=== PATIENT | female | born 1940 | race African-American/Black ===

== ENCOUNTER → 2018-09-15 | Outpatient (CLI) | payer MEDICARE ==
--- NOTE | 2018-09-16 11:15 | MM ---
Reason for exam: screening (asymptomatic). Last mammogram was performed 4 years ago. History: Patient is postmenopausal. Family history of breast cancer in aunt. Physical Findings: A clinical breast exam by your physician is recommended on an annual basis and results should be correlated with mammographic findings. MG 3D Screening Mammo W/Cad Bilateral CC and MLO view(s) were taken. Prior study comparison: September 14, 2014, bilateral MG screening mammo w CAD. April 14, 2013, bilateral digital screening mammo w/CAD. There are scattered fibroglandular densities. No significant changes when compared with prior studies. ASSESSMENT: Negative, BI-RAD 1 RECOMMENDATION: Routine screening mammogram of both breasts in 1 year.
== END ==
LOC: RADMAMWWP 13:22
PROVIDERS: ATTEND Internal Medicine
DX: Z12.31 Encounter for screening mammogram for malignant neoplasm of breast (principal)
CPT/HCPCS: 77063; 77067

== ENCOUNTER → 2023-03-01 | Outpatient (CLI) | payer MEDICARE ==
[2023-03-01 17:00] LABS: Albumin 3.5 d/dL (3.8-4.9); Blood Urea Nitrogen 28.2 mg/dL (9.0-27.0); Calcium 9.6 mg/dL (8.7-10.3); Carbon Dioxide 26.1 mmol/L (21.6-31.8); Chloride 105 mmol/L (96-109); Glucose 90 mg/dL (70-110); Potassium 4.7 mmol/L (3.5-5.5); Sodium 140 mmol/L (135-145)
== END | disposition home or self-care (01) ==
LOC: LABWHC1 10:28
PROVIDERS: ATTEND Student in an Organized Health Care Education/Training Program
DX: N18.9 Chronic kidney disease, unspecified (principal); I50.9 Heart failure, unspecified
CPT/HCPCS: 36415; 80048; 82040; 82784

== ENCOUNTER → 2023-05-03 | Outpatient (CLI) | payer MEDICARE ==
[2023-05-03 12:18] LABS: African American GFR (CKD) 60 (>60 ml/min/1.73 sqM); Anion Gap 10 mmol/L; Blood Urea Nitrogen 52 mg/dL (7-17); Calcium 9.2 mg/dL (8.4-10.2); Carbon Dioxide 25 mmol/L (22-30); Chloride 103 mmol/L (98-107); Glucose 88 mg/dL (74-99); Non-African American GFR(CKD) 52 (>60 ml/min/1.73 sqM); Potassium 4.3 mmol/L (3.5-5.1); Sodium 138 mmol/L (137-145)
[2023-05-03 12:27] LABS: NT-Pro-B-Type Natriuretic Pept 8230 pg/mL
== END | disposition home or self-care (01) ==
LOC: LABWHC1 11:14
PROVIDERS: ATTEND Student in an Organized Health Care Education/Training Program
DX: I50.9 Heart failure, unspecified (principal); N18.9 Chronic kidney disease, unspecified; I42.0 Dilated cardiomyopathy
CPT/HCPCS: 36415; 80048; 83880; 83883; 86334; 86335

== ENCOUNTER → 2023-12-02 | Outpatient (CLI) | payer MEDICARE ==
[2023-12-02 15:23] LABS: HCT 39.9 % (37.2-46.3); HGB 12.8 g/dL (12.0-15.0); MCH 28.5 pg (27.0-32.0); MCHC 32.1 g/dL (32.0-37.0); MCV 88.9 FL (80.0-97.0); Mean Platelet Volume 9.6 FL (9.5-12.2); NRBC Per 100 WBC 0 X 10*3/uL (0.00-0.01); Platelet Count 238 X 10*3/uL (140-440); RBC 4.49 X 10*6/uL (4.10-5.20); WBC 6.12 X 10*3/uL (4.50-10.00)
[2023-12-02 15:28] LABS: NT-Pro-B-Type Natriuretic Pept 13683 pg/mL (0-450)
[2023-12-02 16:18] LABS: ALT 13 U/L (8-44); AST 26 U/L (13-35); Albumin 3.9 g/dL (3.8-4.9); Albumin/Globulin Ratio 0.95 Ratio (1.60-3.17); Alkaline Phosphatase 73 U/L (41-126); BUN/Creat Ratio 26.15 Ratio (12.00-20.00); Calcium 9.6 mg/dL (8.7-10.3); Carbon Dioxide 22.9 mmol/L (21.6-31.8); Chloride 102 mmol/L (96-109); Globulin 4.1 g/dL (1.6-3.3); Glucose 111 mg/dL (70-110); Potassium 3.4 mmol/L (3.5-5.5); Sodium 140 mmol/L (135-145); Total Bilirubin 1.3 mg/dL (0.3-1.2)
== END | disposition home or self-care (01) ==
LOC: LABWHC1 11:22
PROVIDERS: ATTEND Student in an Organized Health Care Education/Training Program
DX: E11.22 Type 2 diabetes mellitus with diabetic chronic kidney disease (principal); N18.9 Chronic kidney disease, unspecified; I50.9 Heart failure, unspecified; E78.5 Hyperlipidemia, unspecified; D63.1 Anemia in chronic kidney disease
CPT/HCPCS: 36415; 80053; 83036; 83880; 85027

== ENCOUNTER 2024-04-23 11:45 | Inpatient (IN) | payer MEDICARE ==
--- NOTE | 2024-04-23 12:08 | ED ---
General Adult HPI - General Chief complaint: Syncope Stated complaint: Syncope Time Seen by Provider: 04/23/24 11:55 Source: patient, family, RN notes reviewed Mode of arrival: wheelchair Limitations: no limitations - History of Present Illness Initial comments: Patient is an 83-year-old female present to the emergency department with concern with syncopal episode. Episode occurred prior to arrival. Patient was just picked up and sitting in the car. Patient became unresponsive for around 4 seconds. Patient does not recall the episode. Patient states she does feel a little bit lightheaded at this time. Patient also has some palpitations. No chest pain. No dyspnea. No abdominal or back pain. Patient does not feel weak or confused. - Related Data Home Medications Medication Instructions Recorded Confirmed lisinopriL [Prinivil] 20 mg PO DAILY 03/08/15 04/23/24 Cholecalciferol (Vitamin D3) 50 mcg PO DAILY 04/23/24 04/23/24 [Vitamin D3 (50 Mcg = 2000 Iu)] Cyanocobalamin (Vitamin B-12) 1,000 mcg PO DAILY 04/23/24 04/23/24 [Vitamin B-12] Furosemide [Lasix] 40 mg PO DAILY 04/23/24 04/23/24 Metoprolol Tartrate [Lopressor] 50 mg PO BID 04/23/24 04/23/24 Simvastatin [Zocor] 40 mg PO HS 04/23/24 04/23/24 Spironolactone [Aldactone] 25 mg PO DAILY 04/23/24 04/23/24 Previous Rx's Medication Instructions Recorded Aspirin EC [Ecotrin] 81 mg PO DAILY #30 tablet. 03/10/15 Allergies Allergy/AdvReac Type Severity Reaction Status Date / Time No Known Allergies Allergy Verified 04/23/24 12:23 Review of Systems ROS Statement: Those systems with pertinent positive or pertinent negative responses have been documented in the HPI. ROS Other: All systems not noted in ROS Statement are negative. Constitutional: Denies: fever Eyes: Denies: eye pain ENT: Denies: ear pain Respiratory: Denies: cough, dyspnea Cardiovascular: Reports: palpitations. Denies: chest pain Endocrine: Denies: fatigue Gastrointestinal: Denies: abdominal pain Musculoskeletal: Denies: back pain Neurological: Denies: headache, weakness, confusion Past Medical History Past Medical History: Heart Failure, Hyperlipidemia, Hypertension History of Any Multi-Drug Resistant Organisms: None Reported Past Surgical History: Hysterectomy, Tonsillectomy Past Anesthesia/Blood Transfusion Reactions: No Reported Reaction Past Psychological History: No Psychological Hx Reported Past Alcohol Use History: None Reported Past Drug Use History: None Reported - Past Family History Father Family Medical History: Pneumonia General Exam Limitations: no limitations General appearance: alert, in no apparent distress Head exam: Present: atraumatic, normocephalic Eye exam: Present: normal appearance, PERRL, EOMI ENT exam: Present: normal oropharynx Neck exam: Present: normal inspection. Absent: tenderness, meningismus Respiratory exam: Present: normal lung sounds bilaterally Cardiovascular Exam: Present: regular rate, normal rhythm GI/Abdominal exam: Present: soft. Absent: tenderness Extremities exam: Present: pedal edema. Absent: calf tenderness Back exam: Present: normal inspection Neurological exam: Present: alert, CN II-XII intact. Absent: motor sensory deficit Psychiatric exam: Present: normal affect, normal mood Skin exam: Present: normal color Course Vital Signs 04/23/24 04/23/24 04/23/24 11:48 12:08 12:26 Temperature 97.5 F L Pulse Rate 70 68 66 Respiratory 20 16 Rate Blood Pressure 146/77 140/88 O2 Sat by Pulse 86 L 96 99 Oximetry EKG Findings - EKG Results: EKG: interpreted by ERMD (Right axis. Right bundle branch block. Inferior Q waves. Q wave in V6. Nonspecific ST-T), sinus rhythm Medical Decision Making - Medical Decision Making Was pt. sent in by a medical professional or institution (, PA, STEERSMAN, urgent care, hospital, or usp...) When possible be specific @ -No Did you speak to anyone other than the patient for history (EMS, parent, family, police, friend...)? What history was obtained from this source @ -[id number] helps provide history as she did witness the syncopal episode Did you review nursing and triage notes (agree or disagree)? Why? @ -I reviewed and agree with nursing and triage notes Were old charts reviewed (outside hosp., previous admission, EMS record, old EKG, old radiological studies, urgent care reports/EKG's, usp records)? Report findings @ -No old charts were reviewed Differential Diagnosis (chest pain, altered mental status, abdominal pain women, abdominal pain men, vaginal bleeding, weakness, fever, dyspnea, syncope, headache, dizziness, GI bleed, back pain, seizure, CVA, palpatations, mental health, musculoskeletal)? @ -Differential Syncope: Valvular disease, hypertrophic cardiomyopathy, pulmonary embolism, tamponade, tachycardia, bradycardia, DE, hypovolemia, hemorrhage, dissection, anemia, intracranial hemorrhage, seizure, hypoglycemia, carbon monoxide poisoning, this is not meant to be an all-inclusive list. EKG interpreted by me (3pts min.). @ -As above X-rays interpreted by me (1pt min.). @ -Chest x-ray shows cardiomegaly and some increased interstitial markings, possible fluid overload CT interpreted by me (1pt min.). @ -None done U/S interpreted by me (1pt. min.). @ -None done What testing was considered but not performed or refused? (CT, X-rays, U/S, labs)? Why? @ -proBNP will be added What meds were considered but not given or refused? Why? @ -None Did you discuss the management of the patient with other professionals (professionals i.e. , PA, STEERSMAN, lab, RT, psych nurse, child welfare social worker, ammonia nitrate operator, teacher, chief supply chain officer, case operator)? Give summary @ -[facility] to admit covering for Dr. Gallardo Was smoking cessation discussed for >3mins.? @ -No Was critical care preformed (if so, how long)? @ -No Were there social determinants of health that impacted care today? How? (Homelessness, low income, unemployed, alcoholism, drug addiction, transportation, low edu. Level, literacy, decrease access to med. care, nursing home, rehab)? @ -No Was there de-escalation of care discussed even if they declined (Discuss DNR or withdrawal of care, Hospice)? DNR status @ -No What co-morbidities impacted this encounter? (DM, HTN, Smoking, COPD, CAD, Cancer, CVA, ARF, Chemo, Hep., AIDS, mental health diagnosis, sleep apnea, morbid obesity)? @ -None Was patient admitted / discharged? Hospital course, mention meds given and route, prescriptions, significant lab abnormalities, going to OR and other pertinent info. @ -Patient presents with syncopal episode. Troponin is somewhat elevated. There is also concern for CHF. Patient will be admitted with cardiac consult. Undiagnosed new problem with uncertain prognosis? @ -No Drug Therapy requiring intensive monitoring for toxicity (Heparin, Nitro, Insulin, Cardizem)? @ -No Were any procedures done? @ -No Diagnosis/symptom? @ -Syncope, CHF Acute, or Chronic, or Acute on Chronic? @ -, Acute Uncomplicated (without systemic symptoms) or Complicated (systemic symptoms)? @ -Default Side effects of treatment? @ -No Exacerbation, Progression, or Severe Exacerbation? @ -No Poses a threat to life or bodily function? How? (Chest pain, USA, DE, pneumonia, PE, COPD, DKA, ARF, appy, cholecystitis, CVA, Diverticulitis, Homicidal, Suicidal, threat to staff... and all critical care pts) @ -Threat to cardiac function - Lab Data Result diagrams: 04/23/24 12:10 04/23/24 12:10 Lab Results 04/23/24 04/23/24 04/23/24 Range/Units 12:10 12:10 12:10 WBC 4.6 (3.8-10.6) k/uL RBC 4.44 (3.80-5.40) m/uL Hgb 12.7 (11.4-16.0) gm/dL Hct 40.6 (34.0-46.0) % MCV 91.4 (80.0-100.0) fL MCH 28.5 (25.0-35.0) pg MCHC 31.2 (31.0-37.0) g/dL RDW 13.7 (11.5-15.5) % Plt Count 255 (150-450) k/uL MPV 6.9 Neutrophils % 43 % Lymphocytes % 36 % Monocytes % 7 % Eosinophils % 10 % Basophils % 1 % Neutrophils # 2.0 (1.3-7.7) k/uL Lymphocytes # 1.6 (1.0-4.8) k/uL Monocytes # 0.3 (0-1.0) k/uL Eosinophils # 0.4 (0-0.7) k/uL Basophils # 0.0 (0-0.2) k/uL Hypochromasia Slight PT 10.8 (10.0-12.5) sec INR 1.0 (<1.2) APTT 21.7 L (22.0-30.0) sec Sodium 137 (137-145) mmol/L Potassium 4.4 (3.5-5.1) mmol/L Chloride 104 (98-107) mmol/L Carbon Dioxide 24 (22-30) mmol/L Anion Gap 9 mmol/L BUN 49 H (7-17) mg/dL Creatinine 1.41 H (0.52-1.04) mg/dL Est GFR (CKD-EPI)AfAm 39 (>60 ml/min/1.73 sqM) Est GFR (CKD-EPI)NonAf 34 (>60 ml/min/1.73 sqM) Glucose 105 H (74-99) mg/dL POC Glucose (mg/dL) (70-110) mg/dL POC Glu Qa Automation Architect ID Calcium 9.6 (8.4-10.2) mg/dL Magnesium 2.4 H (1.6-2.3) mg/dL Total Bilirubin 0.6 (0.2-1.3) mg/dL AST 44 H (14-36) U/L ALT 27 (4-34) U/L Alkaline Phosphatase 75 (38-126) U/L Troponin I (0.000-0.034) ng/mL Total Protein 7.9 (6.3-8.2) g/dL Albumin 4.2 (3.5-5.0) g/dL 04/23/24 04/23/24 Range/Units 12:10 12:10 WBC (3.8-10.6) k/uL RBC (3.80-5.40) m/uL Hgb (11.4-16.0) gm/dL Hct (34.0-46.0) % MCV (80.0-100.0) fL MCH (25.0-35.0) pg MCHC (31.0-37.0) g/dL RDW (11.5-15.5) % Plt Count (150-450) k/uL MPV Neutrophils % % Lymphocytes % % Monocytes % % Eosinophils % % Basophils % % Neutrophils # (1.3-7.7) k/uL Lymphocytes # (1.0-4.8) k/uL Monocytes # (0-1.0) k/uL Eosinophils # (0-0.7) k/uL Basophils # (0-0.2) k/uL Hypochromasia PT (10.0-12.5) sec INR (<1.2) APTT (22.0-30.0) sec Sodium (137-145) mmol/L Potassium (3.5-5.1) mmol/L Chloride (98-107) mmol/L Carbon Dioxide (22-30) mmol/L Anion Gap mmol/L BUN (7-17) mg/dL Creatinine (0.52-1.04) mg/dL Est GFR (CKD-EPI)AfAm (>60 ml/min/1.73 sqM) Est GFR (CKD-EPI)NonAf (>60 ml/min/1.73 sqM) Glucose (74-99) mg/dL POC Glucose (mg/dL) 99 (70-110) mg/dL POC Glu Qa Automation Architect ID Branden Ron Calcium (8.4-10.2) mg/dL Magnesium (1.6-2.3) mg/dL Total Bilirubin (0.2-1.3) mg/dL AST (14-36) U/L ALT (4-34) U/L Alkaline Phosphatase (38-126) U/L Troponin I 0.097 H* (0.000-0.034) ng/mL Total Protein (6.3-8.2) g/dL Albumin (3.5-5.0) g/dL Disposition Clinical Impression: Syncope, CHF (congestive heart failure) Disposition: ADMITTED IP TO THIS HOSP Is patient prescribed a controlled substance at d/c from ED?: No Referrals: Anya Newsome MD [Primary Care Provider] - 1-2 days Time of Disposition: 14:10
[2024-04-23 12:12] LABS: Glucose,Whole Blood 99 mg/dL (70-110)
[2024-04-23 12:16] LABS: Basophils % (A) 1 %; Eosinophils # (A) 0.4 k/uL (0-0.7); Eosinophils % (A) 10 %; HCT 40.6 % (34.0-46.0); HGB 12.7 gm/dL (11.4-16.0); Hypochromasia Slight; Lymphocytes # (A) 1.6 k/uL (1.0-4.8); Lymphocytes % (A) 36 %; MCH 28.5 pg (25.0-35.0); MCHC 31.2 g/dL (31.0-37.0); MCV 91.4 fL (80.0-100.0); Mean Platelet Volume 6.9; Monocytes # (A) 0.3 k/uL (0-1.0); Monocytes % (A) 7 %; Neutrophils % (A) 43 %; Platelet Count 255 k/uL (150-450); RBC 4.44 m/uL (3.80-5.40); RDW 13.7 % (11.5-15.5); WBC 4.6 k/uL (3.8-10.6)
[2024-04-23 12:28] LABS: ALT 27 U/L (4-34); AST 44 U/L (14-36); African American GFR (CKD) 39 (>60 ml/min/1.73 sqM); Albumin 4.2 g/dL (3.5-5.0); Alkaline Phosphatase 75 U/L (38-126); Anion Gap 9 mmol/L; Blood Urea Nitrogen 49 mg/dL (7-17); Calcium 9.6 mg/dL (8.4-10.2); Carbon Dioxide 24 mmol/L (22-30); Chloride 104 mmol/L (98-107); Glucose 105 mg/dL (74-99); Magnesium 2.4 mg/dL (1.6-2.3); Non-African American GFR(CKD) 34 (>60 ml/min/1.73 sqM); Potassium 4.4 mmol/L (3.5-5.1); Sodium 137 mmol/L (137-145); Total Bilirubin 0.6 mg/dL (0.2-1.3); Total Protein 7.9 g/dL (6.3-8.2)
[2024-04-23 12:31] LABS: Prothrombin Time 10.8 sec (10.0-12.5)
[2024-04-23 12:33] LABS: Partial Thromboplastin Time 21.7 sec (22.0-30.0)
--- NOTE | 2024-04-23 12:51 | XR ---
EXAMINATION TYPE: XR chest 2V DATE OF EXAM: 04/23/2024 12:44 PM COMPARISON: Chest radiographs from 03/08/2015 CLINICAL INDICATION: Female, 83 years old with history of syncope; TECHNIQUE: XR chest 2V Frontal and lateral views of the chest. FINDINGS: Lungs/Pleura: There is no evidence of pleural effusion, focal consolidation, or pneumothorax. Pulmonary vascularity: Pulmonary vascular congestion. Heart/mediastinum: Cardiomediastinal silhouette is enlarged and stable. Musculoskeletal: No acute osseous pathology. IMPRESSION: Cardiomegaly and mild pulmonary vascular congestion. Correlate with BNP for congestive heart failure. [facility], , 04/23/2024 12:48 PM
--- NOTE | 2024-04-23 12:55 | CT ---
EXAMINATION TYPE: CT brain wo con DATE OF EXAM: 04/23/2024 12:43 PM COMPARISON: 03/08/2015. CLINICAL INDICATION: Female, 83 years old with history of syncope, syncope TECHNIQUE: Brain: Axial CT images of the brain were obtained with coronal and sagittal reformats created and rev iewed. Contrast used: None. Oral contrast used: None. CT DLP: 1094.4 mGycm, Automated exposure control for dose reduction was used. FINDINGS: Brain: Extra-axial spaces: No abnormal extra-axial fluid collections. Ventricular system: Dilatation in proportion to cerebral atrophy. Cerebral parenchyma: Cerebral atrophy. No acute intraparenchymal hemorrhage or mass effect. The puente -white junction is well differentiated. Scattered hypoattenuating areas are seen within the white mat ter. Cerebellum: Unremarkable. Mass effect: No evidence of midline shift. Intracranial vasculature: Atherosclerotic calcifications of the intracranial vessels. Soft tissues: Normal. Calvarium/osseous structures: No depressed skull fracture. Paranasal sinuses and mastoid air cells: Mild scattered paranasal sinus disease. Visualized orbits: Orbital contents are intact. IMPRESSION: 1. No acute intracranial process. 2. Nonspecific white matter changes, likely secondary to chronic small vessel ischemic disease. [facility], , 04/23/2024 12:52 PM
[2024-04-23] MEDS: ASPIRIN 325 MG TAB PO STA (14:58)
[2024-04-23] MEDS: FUROSEMIDE 10 MG/ML 4 ML VIAL IV SCH (14:58)
--- NOTE | 2024-04-23 20:17 | P.HPIM ---
History of Present Illness This is a pleasant 83 years old -[place] lady. Presents because of syncope As per family at bedside patient was with them in the car, she was sitting when she passed out for about 4 to 5 minutes. She was complaining from dizziness at that time but now she denies any such symptoms. Also the patient is with memory problem and could not remember many of the details. She denies chest pain No GI/ symptom No headache dizziness weakness numbness No smoking alcohol or illicit drugs At baseline she was a walker, she walks mainly inside the house She is afebrile She has unremarkable labs: CBC, BMP, liver enzymes Creatinine elevated above baseline at 1.4, baseline 0.7-1.1, last November it was 1.3 one-time reading CT of the brain was negative Chest x-ray showing cardiomegaly with pulmonary vascular congestion, I reviewed by myself and agree proBNP is elevated 10 100 EKG: Shows sinus rhythm at 88 with right bundle branch block Review of Systems Review of systems CONSTITUTIONAL: No fever, no malaise, no fatigue. HEENT: No recent visual problems or hearing problems. Denied any sore throat. CARDIOVASCULAR: No orthopnea, PND, no palpitations, no syncope. PULMONARY: No chest wall tenderness, no hemoptysis. GASTROINTESTINAL: No diarrhea, no nausea, no vomiting, no abdominal pain. Norm oactive bowel sounds. NEUROLOGICAL: No headaches, no weakness, no numbness. HEMATOLOGICAL: Denies any bleeding or petechiae. GENITOURINARY: Denies any burning micturition, frequency, or urgency. MUSCULOSKELETAL/RHEUMATOLOGICAL: Denies any joint pain, swelling, or any muscle pain. ENDOCRINE: Denies any polyuria or polydipsia. Past Medical History Past Medical History: Heart Failure, Hyperlipidemia, Hypertension, Osteoarthritis (OA) History of Any Multi-Drug Resistant Organisms: None Reported Past Surgical History: Hysterectomy, Tonsillectomy Additional Past Surgical History / Comment(s): benign tumor removal Past Anesthesia/Blood Transfusion Reactions: No Reported Reaction Past Psychological History: No Psychological Hx Reported Smoking Status: Former smoker Past Alcohol Use History: None Reported Past Drug Use History: None Reported - Past Family History Father Family Medical History: Pneumonia Medications and Allergies Home Medications Medication Instructions Recorded Confirmed Type lisinopriL [Prinivil] 20 mg PO DAILY 03/08/15 04/23/24 History Aspirin EC [Ecotrin] 81 mg PO DAILY #30 tablet. 03/10/15 04/23/24 Rx Cholecalciferol (Vitamin D3) 50 mcg PO DAILY 04/23/24 04/23/24 History [Vitamin D3 (50 Mcg = 2000 Iu)] Cyanocobalamin (Vitamin B-12) 1,000 mcg PO DAILY 04/23/24 04/23/24 History [Vitamin B-12] Furosemide [Lasix] 40 mg PO DAILY 04/23/24 04/23/24 History Metoprolol Tartrate [Lopressor] 50 mg PO BID 04/23/24 04/23/24 History Simvastatin [Zocor] 40 mg PO HS 04/23/24 04/23/24 History Spironolactone [Aldactone] 25 mg PO DAILY 04/23/24 04/23/24 History Allergies Allergy/AdvReac Type Severity Reaction Status Date / Time No Known Allergies Allergy Verified 04/23/24 12:23 Physical Exam Vitals: Vital Signs Temp Pulse Pulse Resp BP BP Pulse Ox 04/23/24 17:55 97.9 F 69 16 133/93 98 04/23/24 17:20 67 20 131/77 97 04/23/24 14:56 65 16 117/81 94 L 04/23/24 12:26 66 16 140/88 99 04/23/24 12:08 68 96 04/23/24 11:48 97.5 F L 70 20 146/77 86 L Intake and Output 04/23/24 04/23/24 04/23/24 06:59 14:59 22:59 Intake Total 118 Balance 118 Intake: Oral 118 Other: Voiding Method Toilet Diaper Weight 53.07 kg 53.07 kg GENERAL: The patient is alert and oriented x3, not in any acute distress. Well developed, well nourished. HEENT: Pupils are round and equally reacting to light. EOMI. No scleral icterus. No conjunctival pallor. Normocephalic, atraumatic. No pharyngeal erythema. No thyromegaly. CARDIOVASCULAR: S1 and S2 present. No murmurs, rubs, or gallops. PULMONARY: Chest is clear to auscultation, no wheezing , no crackles. ABDOMEN: Soft, nontender, nondistended, normoactive bowel sounds. No palpable organomegaly. MUSCULOSKELETAL: No joint swelling or deformity. EXTREMITIES: No cyanosis, clubbing, or pedal edema. NEUROLOGICAL: Gross neurological examination did not reveal any focal deficits. SKIN: No rashes. no petechiae. Results CBC & Chem 7: 04/23/24 12:10 04/23/24 12:10 Labs: Abnormal Lab Results - Last 24 Hours (Table) 04/23/24 04/23/24 04/23/24 Range/Units 12:10 12:10 12:10 APTT 21.7 L (22.0-30.0) sec BUN 49 H (7-17) mg/dL Creatinine 1.41 H (0.52-1.04) mg/dL Glucose 105 H (74-99) mg/dL Magnesium 2.4 H (1.6-2.3) mg/dL AST 44 H (14-36) U/L Troponin I 0.097 H* (0.000-0.034) ng/mL 04/23/24 04/23/24 Range/Units 15:33 18:46 APTT (22.0-30.0) sec BUN (7-17) mg/dL Creatinine (0.52-1.04) mg/dL Glucose (74-99) mg/dL Magnesium (1.6-2.3) mg/dL AST (14-36) U/L Troponin I 0.103 H* 0.094 H* (0.000-0.034) ng/mL Thrombosis Risk Factor Assmnt - Choose All That Apply Each Risk Factor Represents 3 Points: Age 75 years or older Thrombosis Risk Factor Assessment Total Risk Factor Score: 3 Thrombosis Risk Factor Assessment Level: Moderate Risk Assessment and Plan Assessment: Syncope Acute CHF with cardiomegaly Elevated troponin most likely secondary to CHF and kidney disease Acute kidney injury on chronic kidney disease stage II-III Hypertension Plan: Continue with aspirin 81 mg Patient started on IV Lasix 40 mg twice daily in ER, monitor kidney function Cardiology team consulted Labs and medication were reviewed.. Continue same treatment. Continue with symptomatic treatment. Resume home medication. Monitor labs and vitals. DVT and GI prophylaxis. Further recommendations as per clinical course of the patient DVT prophylaxis: heparin GI Prophylaxis: Pepcid PT/OT: Pending Prognosis is guarded
[2024-04-23] MEDS: ATORVASTATIN 20 MG TAB PO SCH (20:28)
[2024-04-23] MEDS: METOPROLOL TARTRATE 50 MG TAB PO SCH (20:28)
[2024-04-24 06:25] LABS: African American GFR (CKD) 37 (>60 ml/min/1.73 sqM); Anion Gap 2 mmol/L; Blood Urea Nitrogen 49 mg/dL (7-17); Calcium 8.9 mg/dL (8.4-10.2); Carbon Dioxide 25 mmol/L (22-30); Chloride 105 mmol/L (98-107); Glucose 98 mg/dL (74-99); Non-African American GFR(CKD) 32 (>60 ml/min/1.73 sqM); Potassium 4.5 mmol/L (3.5-5.1); Sodium 132 mmol/L (137-145)
[2024-04-24 07:30] LABS: Basophils % (A) 1 %; Eosinophils # (A) 0.3 k/uL (0-0.7); Eosinophils % (A) 9 %; HCT 33.1 % (34.0-46.0); HGB 10.7 gm/dL (11.4-16.0); Lymphocytes # (A) 1.3 k/uL (1.0-4.8); Lymphocytes % (A) 32 %; MCH 28.7 pg (25.0-35.0); MCHC 32.2 g/dL (31.0-37.0); MCV 89.2 fL (80.0-100.0); Mean Platelet Volume 7.4; Monocytes # (A) 0.3 k/uL (0-1.0); Monocytes % (A) 7 %; Neutrophils # (A) 1.9 k/uL (1.3-7.7); Neutrophils % (A) 48 %; Platelet Count 206 k/uL (150-450); RBC 3.71 m/uL (3.80-5.40); RDW 14.1 % (11.5-15.5)
[2024-04-24] MEDS: SPIRONOLACTONE 25 MG TAB PO SCH (08:22)
[2024-04-24] MEDS: CYANOCOBALAMIN 500 MCG TAB PO SCH (08:22)
[2024-04-24] MEDS: CHOLECALCIFEROL 25 MCG (1000 IU) TABLET PO SCH (08:23)
[2024-04-24] MEDS: ASPIRIN 81 MG PO SCH (08:23)
[2024-04-24] MEDS: lisinopriL 20 MG TAB PO SCH (08:38)
[2024-04-24] MEDS ORDERED: ASPIRIN 325 MG TAB PO SCH (09:00)
--- NOTE | 2024-04-24 10:49 | P.CRDCN ---
History of Present Illness History of present illness: HISTORY OF PRESENT ILLNESS: This is a 83-year-old female with a past medical history significant for severe LVH, congestive heart failure, severe pulmonary hypertension, hyperlipidemia, m ild nonobstructive coronary artery disease. Patient follows in the office with Dr. Sandoval. We have been asked to see the patient in consultation for syncope and CHF. Patient examined at the bedside. Patient's family numbers at the bedside. She states that yesterday she went to her house to chart picker her and another individual for Thanksgiving. She helped walk her out to her car with her walker. She states that when she saw her initially she thought that she just did not look quite right. She got her into the car and then went to get the other person she was going to help into the car. She states that when she got back to the car she noticed that she was gurgling and unresponsive. She states that she decided to bring her to the hospital for further evaluation. She states that she was only out for a few seconds but when she came to she did appear slightly confused. The patient does state that she felt a little dizzy prior to walking out to the car. She denied having any chest pain or shortness of breath. Patient and family both report that patient had worsening lower extremity edema that is now improved today after IV Lasix. The patient's family states that she had a previous episode of syncope around [facility] of this year. However she refused to come to the hospital for evaluation at that time. It is noted that the patient's blood pressure has been on the lower side with a systolic in the mid 90s. DIAGNOSTICS: - EKG reveals sinus mechanism with right bundle branch block. - Chest xray cardiomegaly and mild pulmonary vascular congestion - Laboratory data: WBC 4.0. Hemoglobin 10.7. Platelet count 206. Sodium 132. Potassium 4.5. BUN 49. Creatinine 1.47. Troponin 0.097. 0.103. 0.094. proBNP 10,100. - Current home cardiac medications include aspirin 81 mg daily, Lasix 40 mg daily, lisinopril 20 mg daily, metoprolol tartrate 50 mg twice a day, Aldactone 25 mg daily, and simvastatin 40 mg at night - Most recent echocardiogram obtained in January 2023 performed at [facility] revealing severe LVH, severe pulmonary hypertension, RVSP greater than 60 - Cardiac catheterization history: January 2023 revealing mild nonobstructive CAD. Performed at [facility] REVIEW OF SYSTEMS: At the time of my exam: CONSTITUTIONAL: Denies fever or chills. HEENT: Denies blurred vision, vision changes, or eye pain. Denies hemoptysis CARDIOVASCULAR: Denies chest pain. Denies orthopnea. Denies PND. Denies palpitations RESPIRATORY: Denies shortness of breath. GASTROINTESTINAL: Denies abdominal pain. Denies nausea or vomiting. HEMATOLOGIC: Denies bleeding disorders. GENITOURINARY: Denies any blood in urine. SKIN: Denies pruitis. Denies rash. PHYSICAL EXAM: VITAL SIGNS: Reviewed. GENERAL: Well-developed in no acute distress. HEENT: Head is normocephalic. Pupils are equal, round. Sclerae anicteric. Mucous membranes of the mouth are moist. Neck supple. No JVD or thyromegaly LUNGS: Respirations even and unlabored. Lungs essentially clear to auscultation bilaterally, diminished. HEART: Regular rate and rhythm. S1 and S2 heard. ABDOMEN: Soft. Nondistended. Nontender. EXTREMITIES: Normal range of motion. No clubbing or cyanosis. Peripheral pulses intact. 2+ bilateral lower extremity edema NEUROLOGIC: Awake and alert. Oriented x 3. ASSESSMENT: Syncope Borderline hypotension Acute on chronic heart failure with preserved EF Mild nonobstructive coronary artery disease, per cath January 2023 Hyperlipidemia Acute kidney injury Elevated troponins, flat, likely secondary to poor renal clearance, no evidence of myocardial injury or ischemia Severe pulmonary hypertension Severe LVH PLAN: Obtain 2D echo to assess cardiac structure and function Resume home cardiac medications Hold lisinopril as patient's blood pressure is in the mid 90s this morning Obtain orthostatic blood pressures Continue telemetry monitoring to assess for any arrhythmias Continue IV Lasix for 24 hours. Anticipate transition to oral diuretics tomorrow Daily weights, accurate intake and output, and monitoring of kidney function Further recommendations pending patient course Nurse practitioner note has been reviewed by physician. Signing provider agrees with the documented findings, assessment, and plan of care documented by DETENTION SERGEANT as a scribe. Past Medical History Past Medical History: Heart Failure, Hyperlipidemia, Hypertension, Osteoarthritis (OA) History of Any Multi-Drug Resistant Organisms: None Reported Past Surgical History: Hysterectomy, Tonsillectomy Additional Past Surgical History / Comment(s): benign tumor removal Past Anesthesia/Blood Transfusion Reactions: No Reported Reaction Past Psychological History: No Psychological Hx Reported Smoking Status: Former smoker Past Alcohol Use History: None Reported Additional Past Alcohol Use History / Comment(s): smokes one pack of ciggerrettes per week Past Drug Use History: None Reported - Past Family History Father Family Medical History: Pneumonia Medications and Allergies Home Medications Medication Instructions Recorded Confirmed Type lisinopriL [Prinivil] 20 mg PO DAILY 03/08/15 04/23/24 History Aspirin EC [Ecotrin] 81 mg PO DAILY #30 tablet. 03/10/15 04/23/24 Rx Cholecalciferol (Vitamin D3) 50 mcg PO DAILY 04/23/24 04/23/24 History [Vitamin D3 (50 Mcg = 2000 Iu)] Cyanocobalamin (Vitamin B-12) 1,000 mcg PO DAILY 04/23/24 04/23/24 History [Vitamin B-12] Furosemide [Lasix] 40 mg PO DAILY 04/23/24 04/23/24 History Metoprolol Tartrate [Lopressor] 50 mg PO BID 04/23/24 04/23/24 History Simvastatin [Zocor] 40 mg PO HS 04/23/24 04/23/24 History Spironolactone [Aldactone] 25 mg PO DAILY 04/23/24 04/23/24 History Allergies Allergy/AdvReac Type Severity Reaction Status Date / Time No Known Allergies Allergy Verified 04/23/24 12:23 Physical Exam Vitals: Vital Signs Temp Pulse Pulse Resp BP BP BP 04/24/24 08:49 108/62 112/68 04/24/24 08:16 98.4 F 59 L 16 04/24/24 04:17 98.4 F 58 L 16 04/23/24 23:20 98.4 F 70 16 04/23/24 20:16 98.3 F 81 16 04/23/24 17:55 97.9 F 69 16 04/23/24 17:20 67 20 131/77 04/23/24 14:56 65 16 117/81 04/23/24 12:26 66 16 140/88 04/23/24 12:08 68 04/23/24 11:48 97.5 F L 70 20 146/77 BP BP Pulse Ox 04/24/24 08:49 111/61 04/24/24 08:16 102/59 93 L 04/24/24 04:17 97/54 93 L 04/23/24 23:20 95/59 97 04/23/24 20:16 123/82 93 L 04/23/24 17:55 133/93 98 04/23/24 17:20 97 04/23/24 14:56 94 L 04/23/24 12:26 99 04/23/24 12:08 96 04/23/24 11:48 86 L Intake and Output 04/23/24 04/24/24 04/24/24 22:59 06:59 14:59 Intake Total 118 236 Output Total 1400 Balance 118 -1400 236 Intake: Oral 118 236 Output: Urine 1400 Other: Voiding Method Toilet Toilet Diaper Diaper Weight 53.07 kg 43 kg Results 04/24/24 05:48 04/24/24 05:48 Cardiac Enzymes 04/23/24 04/23/24 04/23/24 Range/Units 12:10 12:10 15:33 AST 44 H (14-36) U/L Troponin I 0.097 H* 0.103 H* (0.000-0.034) ng/mL 04/23/24 Range/Units 18:46 AST (14-36) U/L Troponin I 0.094 H* (0.000-0.034) ng/mL Coagulation 04/23/24 Range/Units 12:10 PT 10.8 (10.0-12.5) sec APTT 21.7 L (22.0-30.0) sec CBC 04/23/24 04/24/24 Range/Units 12:10 05:48 WBC 4.6 4.0 (3.8-10.6) k/uL RBC 4.44 3.71 L (3.80-5.40) m/uL Hgb 12.7 10.7 L (11.4-16.0) gm/dL Hct 40.6 33.1 L (34.0-46.0) % Plt Count 255 206 (150-450) k/uL Comprehensive Metabolic Panel 04/23/24 04/24/24 Range/Units 12:10 05:48 Sodium 137 132 L (137-145) mmol/L Potassium 4.4 4.5 (3.5-5.1) mmol/L Chloride 104 105 (98-107) mmol/L Carbon Dioxide 24 25 (22-30) mmol/L BUN 49 H 49 H (7-17) mg/dL Creatinine 1.41 H 1.47 H (0.52-1.04) mg/dL Glucose 105 H 98 (74-99) mg/dL Calcium 9.6 8.9 (8.4-10.2) mg/dL AST 44 H (14-36) U/L ALT 27 (4-34) U/L Alkaline Phosphatase 75 (38-126) U/L Total Protein 7.9 (6.3-8.2) g/dL Albumin 4.2 (3.5-5.0) g/dL Current Medications Generic Name Dose Route Start Last Admin Trade Name Yonatanq PRN Reason Stop Dose Admin Aspirin 81 mg 04/24/24 09:00 04/24/24 08:23 Aspirin 81 Mg PO 81 mg DAILY ASHLEY Administration Atorvastatin Calcium 20 mg 04/23/24 21:00 04/23/24 20:28 Atorvastatin 20 Mg Tab PO 20 mg HS ASHLEY Administration Cholecalciferol 50 mcg 04/24/24 09:00 04/24/24 08:23 Cholecalciferol 25 Mcg (1000 Iu) Tablet PO 50 mcg DAILY ASHLEY Administration Cyanocobalamin 1,000 mcg 04/24/24 09:00 04/24/24 08:22 Cyanocobalamin 500 Mcg Tab PO 1,000 mcg DAILY SAHLEY Administration Furosemide 40 mg 04/23/24 14:30 04/24/24 04:10 Furosemide 10 Mg/Ml 4 Ml Vial IV 40 mg Q12H ASHLEY Administration Metoprolol Tartrate 50 mg 04/23/24 21:00 04/24/24 08:22 Metoprolol Tartrate 50 Mg Tab PO 50 mg BID ASHLEY Administration Spironolactone 25 mg 04/24/24 09:00 04/24/24 08:22 Spironolactone 25 Mg Tab PO 25 mg DAILY ASHLEY Administration Intake and Output 04/23/24 04/24/24 04/24/24 22:59 06:59 14:59 Intake Total 118 236 Output Total 1400 Balance 118 -1400 236 Intake: Oral 118 236 Output: Urine 1400 Other: Voiding Method Toilet Toilet Diaper Diaper Weight 53.07 kg 43 kg 04/24/24 05:48 04/24/24 05:48
[2024-04-24 13:28] VITALS: BMI 18.5
--- NOTE | 2024-04-24 15:41 | CA ---
Transthoracic Echo Report Name: Haven Monzon Age: 83 Gender: F : 1940 Exam Date: 04/24/2024 11:03 Exam Location: [place] [facility] Ht (in): 60 Wt (lb): 94 Ordering Physician: Kasey Harvey Attending/Referring Phys: [id number], Candice Driveway Attendant Janet Cehng, [place] Procedure CPT: Indications: LV function, syncope Cardiac Hx: Technical Quality: Good Contrast 1: Total Dose (mL): Contrast 2: Total Dose (mL): MEASUREMENTS (Male / Female) Normal Values 2D ECHO LV Diastolic Diameter PLAX 3.7 cm 4.2 - 5.9 / 3.9 - 5.3 cm LV Systolic Diameter PLAX 2.8 cm IVS Diastolic Thickness 2.0 cm 0.6 - 1.0 / 0.6 - 0.9 cm LVPW Diastolic Thickness 1.7 cm 0.6 - 1.0 / 0.6 - 0.9 cm LV Relative Wall Thickness 1.0 RV Internal Dim ED PLAX 3.8 cm LA Systolic Diameter LX 4.4 cm 3.0 - 4.0 / 2.7 - 3.8 cm LV Diastolic Volume MOD BP 54.6 cm??? 67 - 155 / 56 - 104 cm??? LV Systolic Volume MOD BP 38.2 cm??? - 58 / 19 - 49 cm??? LV Ejection Fraction MOD BP 30.1 % >= 55 % LV Cardiac Index MOD BP 821.9 cm???/min???m??? LV Diastolic Volume MOD 4C 68.5 cm??? LV Systolic Volume MOD 4C 49.7 cm??? LV Ejection Fraction MOD 4C 27.4 % LV Cardiac Index MOD 4C 937.4 cm???/min???m??? LV Diastolic Length 4C 6.8 cm LV Systolic Length 4C 6.2 cm LV Diastolic Volume MOD 2C 60.6 cm??? LV Systolic Volume MOD 2C 36.3 cm??? LV Ejection Fraction MOD 2C 40.1 % LV Cardiac Index MOD 2C 1213.8 cm???/min???m??? LV Diastolic Length 2C 6.5 cm LV Systolic Length 2C 5.6 cm LA Volume 85.1 cm??? 18 - 58 / 22 - 52 cm??? LA Volume Index 63.5 cm???/m??? 16 - 28 cm???/m??? M-MODE Aortic Root Diameter MM 2.9 cm AV Cusp Separation MM 2.1 cm DOPPLER AV Peak Velocity 142.0 cm/s AV Peak Gradient 8.1 mmHg MV Area PHT 5.5 cm??? Mitral E Point Velocity 83.1 cm/s Mitral A Point Velocity 65.9 cm/s Mitral E to A Ratio 1.3 MV Deceleration Time 136.8 ms TR Peak Velocity 342.6 cm/s TR Peak Gradient 47.0 mmHg Right Ventricular Systolic Press 49.4 mmHg PI Peak Gradient 25.2 mmHg FINDINGS Left Ventricle Left ventricular ejection fraction is estimated at 40-45 %.Severely increased left ventricular wall thickness. Moderate global hypokinesis Right Ventricle Moderate right ventricular dilatation. Moderate pulmonary hypertension. Right ventricular systolic pressure estimated at 49 mm hg. Right Atrium Moderate right atrial dilatation. No right atrial thrombus or mass seen. Left Atrium Moderately increased left atrial diameter. Severely increased left atrial volume. Mildly increased left atrial area. No left atrial thrombus or mass present. Mitral Valve Mitral valve thickened. Mild mitral regurgitation. Aortic Valve Trileaflet aortic valve. No aortic valve stenosis or regurgitation.aortic valve sclerosis. Tricuspid Valve Structurally normal tricuspid valve. [id number] tricuspid regurgitation. Pulmonic Valve Structurally normal pulmonic valve. Moderate pulmonic regurgitation. Pericardium No pericardial or pleural effusion. Aorta Normal size aortic root and proximal ascending aorta. CONCLUSIONS 1. Moderate global hypokinesis with severe hypertrophy 2. Dilated right ventricle with moderate pulmonary hypertension 3. Moderate to severe tricuspid regurgitation 4. Mild mitral regurgitation Previewed by: Dr. Madison Toledo MD (Electronically Signed) Final Date: 24 April 2024 15:40
--- NOTE | 2024-04-24 17:57 | P.PN ---
Subjective This is a pleasant 83 years old -[place] lady. Presents because of syncope As per family at bedside patient was with them in the car, she was sitting when she passed out for about 4 to 5 minutes. She was complaining from dizziness at that time but now she denies any such symptoms. Also the patient is with memory problem and could not remember many of the details. She denies chest pain No GI/ symptom No headache dizziness weakness numbness No smoking alcohol or illicit drugs At baseline she was a walker, she walks mainly inside the house She is afebrile She has unremarkable labs: CBC, BMP, liver enzymes Creatinine elevated above baseline at 1.4, baseline 0.7-1.1, last November it was 1.3 one-time reading CT of the brain was negative Chest x-ray showing cardiomegaly with pulmonary vascular congestion, I reviewed by myself and agree proBNP is elevated 10 100 EKG: Shows sinus rhythm at 88 with right bundle branch block 04/24 No dizziness No chest pain Leg swelling is better Creatinine stable at 1.4 and her IV Lasix switch from 40 mg twice daily until oral dose of once daily Hemoglobin from 12.7 went down to 10.7, it was 10 before so it could be just variation Check hemoglobin in the morning Clinical Informatics Physician also wants to give the patient today. Objective - Vital Signs Vital signs: Vital Signs Temp 97.7 F 04/24/24 17:06 Pulse 66 04/24/24 17:06 Resp 14 04/24/24 17:06 BP 101/51 04/24/24 17:06 Pulse Ox 94 L 04/24/24 17:06 FiO2 Intake & Output 04/23/24 04/24/24 04/24/24 18:59 06:59 18:59 Intake Total 118 354 Output Total 1400 Balance -1282 354 Weight 53.07 kg 43 kg 43 kg Intake: Oral 118 354 Output: Urine 1400 Other: Voiding Method Toilet Toilet Toilet Diaper Diaper Diaper - Exam GENERAL: The patient is alert and oriented x3, not in any acute distress. Well developed, well nourished. HEENT: Pupils are round and equally reacting to light. EOMI. No scleral icterus. No conjunctival pallor. Normocephalic, atraumatic. No pharyngeal erythema. No thyromegaly. CARDIOVASCULAR: S1 and S2 present. No murmurs, rubs, or gallops. PULMONARY: Chest is clear to auscultation, no wheezing , no crackles. ABDOMEN: Soft, nontender, nondistended, normoactive bowel sounds. No palpable organomegaly. MUSCULOSKELETAL: No joint swelling or deformity. EXTREMITIES: No cyanosis, clubbing, or pedal edema. NEUROLOGICAL: Gross neurological examination did not reveal any focal deficits. SKIN: No rashes. no petechiae. - Labs CBC & Chem 7: 04/24/24 05:48 04/24/24 05:48 Labs: Abnormal Lab Results - Last 24 Hours (Table) 04/23/24 04/24/24 04/24/24 Range/Units 18:46 05:48 05:48 RBC 3.71 L (3.80-5.40) m/uL Hgb 10.7 L (11.4-16.0) gm/dL Hct 33.1 L (34.0-46.0) % Sodium 132 L (137-145) mmol/L BUN 49 H (7-17) mg/dL Creatinine 1.47 H (0.52-1.04) mg/dL Troponin I 0.094 H* (0.000-0.034) ng/mL Assessment and Plan Assessment: Syncope Acute CHF with cardiomegaly Elevated troponin most likely secondary to CHF and kidney disease Acute kidney injury on chronic kidney disease stage II-III Hypertension normochromic, normocytic anemia, chronic with slight worsening could be fluctuating from baseline Plan: Continue with aspirin 81 mg Continue with oral Lasix Cardiology team consulted monitor hemoglobin and creatinine tomorrow Labs and medication were reviewed.. Continue same treatment. Continue with symptomatic treatment. Resume home medication. Monitor labs and vitals. DVT and GI prophylaxis. Further recommendations as per clinical course of the patient DVT prophylaxis: heparin GI Prophylaxis: Pepcid PT/OT: Pending Prognosis is guarded
[2024-04-24] MEDS ORDERED: NITROGLYCERIN OINT 1 INCH/GM PACKET TOPICAL SCH (18:00)
[2024-04-24] MEDS: MIDODRINE 5 MG TAB PO ONE (20:46)
[2024-04-25 07:50] LABS: Basophils % (A) 1 %; Eosinophils # (A) 0.5 k/uL (0-0.7); Eosinophils % (A) 10 %; HCT 36.6 % (34.0-46.0); HGB 11.9 gm/dL (11.4-16.0); Lymphocytes # (A) 1.4 k/uL (1.0-4.8); Lymphocytes % (A) 27 %; MCH 29.4 pg (25.0-35.0); MCHC 32.5 g/dL (31.0-37.0); MCV 90.5 fL (80.0-100.0); Mean Platelet Volume 6.7; Monocytes # (A) 0.4 k/uL (0-1.0); Monocytes % (A) 8 %; Neutrophils # (A) 2.7 k/uL (1.3-7.7); Neutrophils % (A) 51 %; Platelet Count 223 k/uL (150-450); RBC 4.05 m/uL (3.80-5.40); RDW 13.8 % (11.5-15.5); WBC 5.3 k/uL (3.8-10.6)
[2024-04-25 08:04] LABS: African American GFR (CKD) 33 (>60 ml/min/1.73 sqM); Anion Gap 5 mmol/L; Blood Urea Nitrogen 55 mg/dL (7-17); Calcium 9.3 mg/dL (8.4-10.2); Carbon Dioxide 27 mmol/L (22-30); Chloride 102 mmol/L (98-107); Glucose 89 mg/dL (74-99); Non-African American GFR(CKD) 29 (>60 ml/min/1.73 sqM); Potassium 4.6 mmol/L (3.5-5.1); Sodium 134 mmol/L (137-145)
[2024-04-25] MEDS: FUROSEMIDE 40 MG TAB PO SCH (08:55)
--- NOTE | 2024-04-25 12:02 | P.PN ---
Subjective HISTORY OF PRESENT ILLNESS: This is a 83-year-old female with a past medical history significant for severe LVH, congestive heart failure, severe pulmonary hypertension, hyperlipidemia, mild nonobstructive coronary artery disease. Patient follows in the office with Dr. Sandoval. We have been asked to see the patient in consultation for syncope and CHF. Patient examined at the bedside. Patient's family numbers at the bedside. She states that yesterday she went to her house to cloth picker her and another individual for Thanksgiving. She helped walk her out to her car with her walker. She states that when she saw her initially she thought that she just did not look quite right. She got her into the car and then went to get the other person she was going to help into the car. She states that when she got back to the car she noticed that she was gurgling and unresponsive. She states that she decided to bring her to the hospital for further evaluation. She states that she was only out for a few seconds but when she came to she did appe ar slightly confused. The patient does state that she felt a little dizzy prior to walking out to the car. She denied having any chest pain or shortness of breath. Patient and family both report that patient had worsening lower extremity edema that is now improved today after IV Lasix. The patient's family states that she had a previous episode of syncope around [facility] of this year. However she refused to come to the hospital for evaluation at that time. It is noted that the patient's blood pressure has been on the lower side with a systolic in the mid 90s. DIAGNOSTICS: - EKG reveals sinus mechanism with right bundle branch block. - Chest xray cardiomegaly and mild pulmonary vascular congestion - Laboratory data: WBC 4.0. Hemoglobin 10.7. Platelet count 206. Sodium 132. Potassium 4.5. BUN 49. Creatinine 1.47. Troponin 0.097. 0.103. 0.094. proBNP 10,100. - Current home cardiac medications include aspirin 81 mg daily, Lasix 40 mg daily, lisinopril 20 mg daily, metoprolol tartrate 50 mg twice a day, Aldactone 25 mg daily, and simvastatin 40 mg at night - Most recent echocardiogram obtained in January 2023 performed at [facility] revealing severe LVH, severe pulmonary hypertension, RVSP greater than 60 - Cardiac catheterization history: January 2023 revealing mild nonobstructive CAD. Performed at [facility] 04/25/2024 Patient examined this morning at the bedside. Patient currently denies chest pain or pressure. She denies shortness of breath. Denies dizziness or lightheadedness. Denies palpitations. Patient's blood pressure was low overnight and she was given a one-time dose of midodrine. Blood pressure this morning has improved with a systolic around 107. Creatinine today 1.61. Echocardiogram completed revealing ejection fraction 40 to 45%, moderate global hypokinesis, moderate pulmonary hypertension, moderate to severe TR, mild MR PHYSICAL EXAM: VITAL SIGNS: Reviewed. GENERAL: Well-developed in no acute distress. HEENT: Head is normocephalic. Pupils are equal, round. Sclerae anicteric. Mucous membranes of the mouth are moist. Neck supple. No JVD or thyromegaly LUNGS: Respirations even and unlabored. Lungs essentially clear to auscultation bilaterally, diminished. HEART: Regular rate and rhythm. S1 and S2 heard. ABDOMEN: Soft. Nondistended. Nontender. EXTREMITIES: Normal range of motion. No clubbing or cyanosis. Peripheral pulses intact. Trace bilateral lower extremity edema NEUROLOGIC: Awake and alert. Oriented x 3. 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 Possible discharge home tomorrow if patient remains stable Further recommendations pending patient course Nurse practitioner note has been reviewed by physician. Signing provider agrees with the documented findings, assessment, and plan of care documented by GRINDING WHEEL DRESSER as a scribe. Objective - Vital Signs Vital signs: Vital Signs Temp 97.3 F L 04/25/24 08:45 Pulse 75 04/25/24 08:45 Resp 18 04/25/24 08:45 BP 106/69 04/25/24 09:49 Pulse Ox 99 04/25/24 08:45 FiO2 Intake & Output 04/24/24 04/25/24 04/25/24 18:59 06:59 18:59 Intake Total 354 250 Output Total 1700 500 700 Balance -1940 -326 -052 Weight 43 kg 58.5 kg Intake: IV 10 Invasive Line 1 10 Oral 354 240 Output: Urine 1700 500 700 Other: Voiding Method Toilet Toilet Toilet Diaper Diaper Diaper - Labs CBC & Chem 7: 04/25/24 07:21 04/25/24 07:21 Labs: Abnormal Lab Results - Last 24 Hours (Table) 04/25/24 Range/Units 07:21 Sodium 134 L (137-145) mmol/L BUN 55 H (7-17) mg/dL Creatinine 1.61 H (0.52-1.04) mg/dL
--- NOTE | 2024-04-25 19:42 | P.PN ---
Subjective This is a pleasant 83 years old -[place] lady. Presents because of syncope As per family at bedside patient was with them in the car, she was sitting when she passed out for about 4 to 5 minutes. She was complaining from dizziness at that time but now she denies any such symptoms. Also the patient is with memory problem and could not remember many of the details. She denies chest pain No GI/ symptom No headache dizziness weakness numbness No smoking alcohol or illicit drugs At baseline she was a walker, she walks mainly inside the house She is afebrile She has unremarkable labs: CBC, BMP, liver enzymes Creatinine elevated above baseline at 1.4, baseline 0.7-1.1, last November it was 1.3 one-time reading CT of the brain was negative Chest x-ray showing cardiomegaly with pulmonary vascular congestion, I reviewed by myself and agree proBNP is elevated 10 100 EKG: Shows sinus rhythm at 88 with right bundle branch block 04/24 No dizziness No chest pain Leg swelling is better Creatinine stable at 1.4 and her IV Lasix switch from 40 mg twice daily until oral dose of once daily Hemoglobin from 12.7 went down to 10.7, it was 10 before so it could be just variation Check hemoglobin in the morning Mobile Ui/Ux Designer also wants to give the patient today. 04/25 Patient had blood pressure low normal yesterday we have to give her 1 dose of midodrine, blood pressure improved today but creatinine went up to 1.6 We switched her IV Lasix to oral Lasix and decreased frequency to once daily. Metoprolol dose lowered from 50 down to 25 mg, lisinopril was held on admission. Blood pressure is low normal now Will check BMP in the morning and physical [facility] for discharge Hemoglobin normal Objective - Vital Signs Vital signs: Vital Signs Temp 97.3 F L 04/25/24 08:45 Pulse 60 04/25/24 12:17 Resp 16 04/25/24 12:17 BP 111/71 04/25/24 12:17 Pulse Ox 98 04/25/24 12:17 FiO2 Intake & Output 04/24/24 04/25/24 04/25/24 18:59 06:59 18:59 Intake Total 354 368 Output Total 1700 500 700 Balance -1346 -500 -332 Weight 43 kg 58.5 kg Intake: IV 10 Invasive Line 1 10 Oral 354 358 Output: Urine 1700 500 700 Other: Voiding Method Toilet Toilet Toilet Diaper Diaper Diaper - Exam GENERAL: The patient is alert and oriented x3, not in any acute distress. Well developed, well nourished. HEENT: Pupils are round and equally reacting to light. EOMI. No scleral icterus. No conjunctival pallor. Normocephalic, atraumatic. No pharyngeal erythema. No thyromegaly. CARDIOVASCULAR: S1 and S2 present. No murmurs, rubs, or gallops. PULMONARY: Chest is clear to auscultation, no wheezing , no crackles. ABDOMEN: Soft, nontender, nondistended, normoactive bowel sounds. No palpable organomegaly. MUSCULOSKELETAL: No joint swelling or deformity. EXTREMITIES: No cyanosis, clubbing, or pedal edema. NEUROLOGICAL: Gross neurological examination did not reveal any focal deficits. SKIN: No rashes. no petechiae. - Labs CBC & Chem 7: 04/25/24 07:21 04/25/24 07:21 Labs: Abnormal Lab Results - Last 24 Hours (Table) 04/25/24 Range/Units 07:21 Sodium 134 L (137-145) mmol/L BUN 55 H (7-17) mg/dL Creatinine 1.61 H (0.52-1.04) mg/dL Assessment and Plan Assessment: Syncope secondary mostly to hypertension Acute CHF with cardiomegaly, mild and resolved. No need for IV diuretic now Elevated troponin most likely secondary to CHF and kidney disease Acute kidney injury on chronic kidney disease stage II-III. Most likely secondary to hypotension Hypertension normochromic, normocytic anemia, chronic with slight worsening could be fluctuating from baseline Plan: Continue with aspirin 81 mg Continue with oral Lasix 40 mg daily Continue holding lisinopril and lower dose of metoprolol Check creatinine tomorrow and if is stable may be considered for discharge Cardiology team consulted monitor hemoglobin and creatinine tomorrow Labs and medication were reviewed.. Continue same treatment. Continue with symptomatic treatment. Resume home medication. Monitor labs and vitals. DVT and GI prophylaxis. Further recommendations as per clinical course of the bird ent DVT prophylaxis: heparin GI Prophylaxis: Pepcid PT/OT: Pending Prognosis is guarded
[2024-04-25] MEDS: METOPROLOL TARTRATE 25 MG TAB PO SCH (21:48)
[2024-04-26 08:46] LABS: African American GFR (CKD) 37 (>60 ml/min/1.73 sqM); Anion Gap 3 mmol/L; Blood Urea Nitrogen 49 mg/dL (7-17); Calcium 9.3 mg/dL (8.4-10.2); Carbon Dioxide 28 mmol/L (22-30); Chloride 102 mmol/L (98-107); Glucose 90 mg/dL (74-99); Non-African American GFR(CKD) 32 (>60 ml/min/1.73 sqM); Potassium 4.6 mmol/L (3.5-5.1); Sodium 133 mmol/L (137-145)
--- NOTE | 2024-04-26 11:12 | P.PN ---
Subjective HISTORY OF PRESENT ILLNESS: This is a 83-year-old female with a past medical history significant for severe LVH, congestive heart failure, severe pulmonary hypertension, hyperlipidemia, mild nonobstructive coronary artery disease. Patient follows in the office with Dr. Sandoval. We have been asked to see the patient in consultation for syncope and CHF. Patient examined at the bedside. Patient's family numbers at the bedside. 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 She helped walk her out to her car with her walker. She states that when she saw her initially she thought that she just did not look quite right. She got her into the car and then went to get the other person she was going to help into the car. She states that when she got back to the car she noticed that she was gurgling and unresponsive. She states that she decided to bring her to the hospital for further evaluation. She states that she was only out for a few seconds but when she came to she did appe ar slightly confused. The patient does state that she felt a little dizzy prior to walking out to the car. She denied having any chest pain or shortness of breath. Patient and family both report that patient had worsening lower extremity edema that is now improved today after IV Lasix. The patient's family states that she had a previous episode of syncope around [facility] of this year. However she refused to come to the hospital for evaluation at that time. It is noted that the patient's blood pressure has been on the lower side with a systolic in the mid 90s. DIAGNOSTICS: - EKG reveals sinus mechanism with right bundle branch block. - Chest xray cardiomegaly and mild pulmonary vascular congestion - Laboratory data: WBC 4.0. Hemoglobin 10.7. Platelet count 206. Sodium 132. Potassium 4.5. BUN 49. Creatinine 1.47. Troponin 0.097. 0.103. 0.094. proBNP 10,100. - Current home cardiac medications include aspirin 81 mg daily, Lasix 40 mg daily, lisinopril 20 mg daily, metoprolol tartrate 50 mg twice a day, Aldactone 25 mg daily, and simvastatin 40 mg at night - Most recent echocardiogram obtained in January 2023 performed at [facility] revealing severe LVH, severe pulmonary hypertension, RVSP greater than 60 - Cardiac catheterization history: January 2023 revealing mild nonobstructive CAD. Performed at [facility] 04/25/2024 Patient examined this morning at the bedside. Patient currently denies chest pain or pressure. She denies shortness of breath. Denies dizziness or lightheadedness. Denies palpitations. Patient's blood pressure was low overnight and she was given a one-time dose of midodrine. Blood pressure this morning has improved with a systolic around 107. Creatinine today 1.61. Echocardiogram completed revealing ejection fraction 40 to 45%, moderate global hypokinesis, moderate pulmonary hypertension, moderate to severe TR, mild MR 04/26/2024 Patient examined this morning at the bedside. Patient is sitting up in the chair. She denies chest pain or pressure. She denies shortness of breath. Blood pressure is improved today with a reading of 115/70. Patient's family states they are awaiting PT OT consult to determine if patient will require ECF at discharge. Creatinine improved today at 1.49. PHYSICAL EXAM: VITAL SIGNS: Reviewed. GENERAL: Well-developed in no acute distress. HEENT: Head is normocephalic. Pupils are equal, round. Sclerae anicteric. Mucous membranes of the mouth are moist. Neck supple. No JVD or thyromegaly LUNGS: Respirations even and unlabored. Lungs essentially clear to auscultation bilaterally, diminished. HEART: Regular rate and rhythm. S1 and S2 heard. ABDOMEN: Soft. Nondistended. Nontender. EXTREMITIES: Normal range of motion. No clubbing or cyanosis. Peripheral pulses intact. Trace bilateral lower extremity edema NEUROLOGIC: Awake and alert. Oriented x 3. 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 Continue this dose upon discharge. Continue to monitor blood pressure Patient is currently stable for discharge from a cardiac standpoint Further recommendations pending patient course Nurse practitioner note has been reviewed by physician. Signing provider agrees with the documented findings, assessment, and plan of care documented by REVENUE ACCOUNTING MANAGER as a scribe. Objective - Vital Signs Vital signs: Vital Signs Temp 98.3 F 04/26/24 09:08 Pulse 78 04/26/24 09:08 Resp 16 04/26/24 09:08 BP 115/70 04/26/24 09:08 Pulse Ox 94 L 04/26/24 09:08 FiO2 Intake & Output 04/25/24 04/26/24 04/26/24 18:59 06:59 18:59 Intake Total 368 250 Output Total 1500 600 Balance -1132 -600 250 Weight 54.6 kg Intake: IV 10 10 Invasive Line 1 10 10 Oral 358 240 Output: Urine 1500 600 Other: Voiding Method Toilet Toilet Bedside Commode Diaper Diaper Diaper # Voids 1 - Labs CBC & Chem 7: 04/25/24 07:21 04/26/24 07:45 Labs: Abnormal Lab Results - Last 24 Hours (Table) 04/26/24 Range/Units 07:45 Sodium 133 L (137-145) mmol/L BUN 49 H (7-17) mg/dL Creatinine 1.49 H (0.52-1.04) mg/dL
--- NOTE | 2024-04-27 04:28 | P.PN ---
Subjective This is a pleasant 83 years old -[place]ai lady. Presents because of syncope As per family at bedside patient was with them in the car, she was sitting when she passed out for about 4 to 5 minutes. She was complaining from dizziness at that time but now she denies any such symptoms. Also the patient is with memory problem and could not remember many of the details. She denies chest pain No GI/ symptom No headache dizziness weakness numbness No smoking alcohol or illicit drugs At baseline she was a walker, she walks mainly inside the house She is afebrile She has unremarkable labs: CBC, BMP, liver enzymes Creatinine elevated above baseline at 1.4, baseline 0.7-1.1, last November it was 1.3 one-time reading CT of the brain was negative Chest x-ray showing cardiomegaly with pulmonary vascular congestion, I reviewed by myself and agree proBNP is elevated 10 100 EKG: Shows sinus rhythm at 88 with right bundle branch block 04/24 No dizziness No chest pain Leg swelling is better Creatinine stable at 1.4 and her IV Lasix switch from 40 mg twice daily until oral dose of once daily Hemoglobin from 12.7 went down to 10.7, it was 10 before so it could be just variation Check hemoglobin in the morning Mussel Farmer also wants to give the patient today. 04/25 Patient had blood pressure low normal yesterday we have to give her 1 dose of midodrine, blood pressure improved today but creatinine went up to 1.6 We switched her IV Lasix to oral Lasix and decreased frequency to once daily. Metoprolol dose lowered from 50 down to 25 mg, lisinopril was held on admission. Blood pressure is low normal now Will check BMP in the morning and physical [facility] for discharge Hemoglobin normal 04/27 Patient clinically doing well She is asymptomatic She feels also she can go home soon. However patient might need help with mobility, therefore physical therapy evaluation need to be done tomorrow. Patient agrees to go to rehab if indicated. Currently blood pressure is better on metoprolol 25 mg twice daily and Aldactone Possible discharge in 24 to 48 hours Objective - Vital Signs Vital signs: Vital Signs Temp 97.9 F 04/26/24 11:42 Pulse 79 04/26/24 11:42 Resp 18 04/26/24 11:42 BP 104/54 04/26/24 11:42 Pulse Ox 95 04/26/24 11:42 FiO2 Intake & Output 04/25/24 04/26/24 04/26/24 18:59 06:59 18:59 Intake Total 368 250 Output Total 1500 600 Balance -1132 -600 250 Weight 54.6 kg Intake: IV 10 10 Invasive Line 1 10 10 Oral 358 240 Output: Urine 1500 600 Other: Voiding Method Toilet Toilet Bedside Commode Diaper Diaper Diaper # Voids 1 - Exam GENERAL: The patient is alert and oriented x3, not in any acute distress. Well developed, well nourished. HEENT: Pupils are round and equally reacting to light. EOMI. No scleral icterus. No conjunctival pallor. Normocephalic, atraumatic. No pharyngeal erythema. No thyromegaly. CARDIOVASCULAR: S1 and S2 present. No murmurs, rubs, or gallops. PULMONARY: Chest is clear to auscultation, no wheezing , no crackles. ABDOMEN: Soft, nontender, nondistended, normoactive bowel sounds. No palpable organomegaly. MUSCULOSKELETAL: No joint swelling or deformity. EXTREMITIES: No cyanosis, clubbing, or pedal edema. NEUROLOGICAL: Gross neurological examination did not reveal any focal deficits. SKIN: No rashes. no petechiae. - Labs CBC & Chem 7: 04/25/24 07:21 04/26/24 07:45 Labs: Abnormal Lab Results - Last 24 Hours (Table) 04/26/24 Range/Units 07:45 Sodium 133 L (137-145) mmol/L BUN 49 H (7-17) mg/dL Creatinine 1.49 H (0.52-1.04) mg/dL Assessment and Plan Assessment: Syncope secondary mostly to hypertension Acute CHF with cardiomegaly, mild and resolved. No need for IV diuretic now Elevated troponin most likely secondary to CHF and kidney disease Acute kidney injury on chronic kidney disease stage II-III. Most likely secondary to hypotension Hypertension normochromic, normocytic anemia, chronic with slight worsening could be fluctuating from baseline Plan: Continue with aspirin 81 mg Continue holding lisinopril and lower dose of metoprolol Cardiology team consulted Monitor blood pressure Physical therapy evaluation in the morning Labs and medication were reviewed.. Continue same treatment. Continue with symptomatic treatment. Resume home medication. Monitor labs and vitals. DVT and GI prophylaxis. Further recommendations as per clinical course of the patient DVT prophylaxis: heparin GI Prophylaxis: Pepcid PT/OT: Pending Prognosis is guarded
--- NOTE | 2024-04-27 14:09 | P.PN ---
Subjective HISTORY OF PRESENT ILLNESS: This is a 83-year-old female with a past medical history significant for severe LVH, congestive heart failure, severe pulmonary hypertension, hyperlipidemia, mild nonobstructive coronary artery disease. Patient follows in the office with Dr. Sandoval. We have been asked to see the patient in consultation for syncope and CHF. Patient examined at the bedside. Patient's family numbers at the bedside. 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 She helped walk her out to her car with her walker. She states that when she saw her initially she thought that she just did not look quite right. She got her into the car and then went to get the other person she was going to help into the car. She states that when she got back to the car she noticed that she was gurgling and unresponsive. She states that she decided to bring her to the hospital for further evaluation. She states that she was only out for a few seconds but when she came to she did appe ar slightly confused. The patient does state that she felt a little dizzy prior to walking out to the car. She denied having any chest pain or shortness of breath. Patient and family both report that patient had worsening lower extremity edema that is now improved today after IV Lasix. The patient's family states that she had a previous episode of syncope around [facility] of this year. However she refused to come to the hospital for evaluation at that time. It is noted that the patient's blood pressure has been on the lower side with a systolic in the mid 90s. DIAGNOSTICS: - EKG reveals sinus mechanism with right bundle branch block. - Chest xray cardiomegaly and mild pulmonary vascular congestion - Laboratory data: WBC 4.0. Hemoglobin 10.7. Platelet count 206. Sodium 132. Potassium 4.5. BUN 49. Creatinine 1.47. Troponin 0.097. 0.103. 0.094. proBNP 10,100. - Current home cardiac medications include aspirin 81 mg daily, Lasix 40 mg daily, lisinopril 20 mg daily, metoprolol tartrate 50 mg twice a day, Aldactone 25 mg daily, and simvastatin 40 mg at night - Most recent echocardiogram obtained in January 2023 performed at [facility] revealing severe LVH, severe pulmonary hypertension, RVSP greater than 60 - Cardiac catheterization history: January 2023 revealing mild nonobstructive CAD. Performed at [facility] 04/25/2024 Patient examined this morning at the bedside. Patient currently denies chest pain or pressure. She denies shortness of breath. Denies dizziness or lightheadedness. Denies palpitations. Patient's blood pressure was low overnight and she was given a one-time dose of midodrine. Blood pressure this morning has improved with a systolic around 107. Creatinine today 1.61. Echocardiogram completed revealing ejection fraction 40 to 45%, moderate global hypokinesis, moderate pulmonary hypertension, moderate to severe TR, mild MR 04/26/2024 Patient examined this morning at the bedside. Patient is sitting up in the chair. She denies chest pain or pressure. She denies shortness of breath. Blood pressure is improved today with a reading of 115/70. Patient's family states they are awaiting PT OT consult to determine if patient will require ECF at discharge. Creatinine improved today at 1.49. 04/27 Patient seen and examined. Patient denies any chest pain or pressure. She has been using her walker and getting up to walk around without much difficulty. Blood pressures still somewhat borderline in the 100/60 systolic range. PHYSICAL EXAM: VITAL SIGNS: Reviewed. GENERAL: Well-developed in no acute distress. HEENT: Head is normocephalic. Pupils are equal, round. Sclerae anicteric. Mucous membranes of the mouth are moist. Neck supple. No JVD or thyromegaly LUNGS: Respirations even and unlabored. Lungs essentially clear to auscultation bilaterally, diminished. HEART: Regular rate and rhythm. S1 and S2 heard. ABDOMEN: Soft. Nondistended. Nontender. EXTREMITIES: Normal range of motion. No clubbing or cyanosis. Peripheral pulses intact. Trace bilateral lower extremity edema NEUROLOGIC: Awake and alert. Oriented x 3. ASSESSMENT: Syncope Borderline hypotension Acute on chronic heart failure with preserved EF Mild nonobstructive coronary artery disease, per cath January 2023 Hyperlipidemia Acute kidney injury Elevated troponins, flat, likely secondary to poor renal clearance, no evidence of myocardial injury or ischemia Severe pulmonary hypertension Severe LVH Moderate to severe tricuspid regurgitation New onset cardiomyopathy, 40 to 45%, suspect nonischemic PLAN: Patient's blood pressure still borderline low and therefore decrease Aldactone to 12.5 mg daily. Otherwise patient is stable for discharge home and continue to hold lisinopril and decreased dose of the metoprolol. Objective - Vital Signs Vital signs: Vital Signs Temp 98 F 04/27/24 13:27 Pulse 73 04/27/24 13:27 Resp 18 04/27/24 13:27 BP 96/59 04/27/24 13:27 Pulse Ox 97 04/27/24 13:27 FiO2 Intake & Output 04/26/24 04/27/24 04/27/24 18:59 06:59 18:59 Intake Total 488 Output Total 300 Balance 488 -300 Weight 55.5 kg Intake: IV 10 Invasive Line 1 10 Oral 478 Output: Urine 300 Other: Voiding Method Bedside Commode Toilet Toilet Diaper Diaper # Voids 1 1 # Bowel Movements 1 1 - Labs CBC & Chem 7: 04/25/24 07:21 04/26/24 07:45
[2024-04-28] MEDS: SPIRONOLACTONE 25 MG TAB PO SCH (08:28)
[2024-04-28 08:31] LABS: Basophils # (A) 0.03 X 10*3/uL (0.00-0.10); Basophils % (A) 0.6 %; Eosinophils # (A) 0.56 X 10*3/uL (0.04-0.35); Eosinophils % (A) 11.6 %; HCT 36.4 % (37.2-46.3); HGB 11.7 g/dL (12.0-15.0); Lymphocytes # (A) 1.36 X 10*3/uL (0.90-5.00); Lymphocytes % (A) 28.3 %; MCH 29.2 pg (27.0-32.0); MCHC 32.1 g/dL (32.0-37.0); MCV 90.8 FL (80.0-97.0); Mean Platelet Volume 9.4 FL (9.5-12.2); Monocytes # (A) 0.53 X 10*3/uL (0.20-1.00); NRBC Per 100 WBC 0 X 10*3/uL (0.00-0.01); Neutrophils # (A) 2.31 X 10*3/uL (1.80-7.70); Neutrophils % (A) 48.1 %; Platelet Count 221 X 10*3/uL (140-440); RBC 4.01 X 10*6/uL (4.10-5.20); RDW 14.5 % (11.5-14.5); WBC 4.81 X 10*3/uL (4.50-10.00)
[2024-04-28] MEDS: ACETAMINOPHEN TAB 325 MG TAB PO PRN (08:49)
[2024-04-28 08:59] LABS: BUN/Creat Ratio 38.36 Ratio (12.00-20.00); Blood Urea Nitrogen 53.7 mg/dL (9.0-27.0); Calcium 9.2 mg/dL (8.7-10.3); Carbon Dioxide 23.6 mmol/L (21.6-31.8); Chloride 101 mmol/L (96-109); Glucose 91 mg/dL (70-110); Sodium 137 mmol/L (135-145)
[2024-04-28 09:01] VITALS: RESP 16
[2024-04-28 14:27] VITALS: BP 111/63; PULSE 71; TEMP 98.5
--- NOTE | 2024-04-28 14:38 | P.PN ---
Subjective HISTORY OF PRESENT ILLNESS: This is a 83-year-old female with a past medical history significant for severe LVH, congestive heart failure, severe pulmonary hypertension, hyperlipidemia, mild nonobstructive coronary artery disease. Patient follows in the office with Dr. Sandoval. We have been asked to see the patient in consultation for syncope and CHF. Patient examined at the bedside. Patient's family numbers at the bedside. She states that yesterday she went to her house to vegetable picker her and another individual for Thanksgiving. She helped walk her out to her car with her walker. She states that when she saw her initially she thought that she just did not look quite right. She got her into the car and then went to get the other person she was going to help into the car. She states that when she got back to the car she noticed that she was gurgling and unresponsive. She states that she decided to bring her to the hospital for further evaluation. She states that she was only out for a few seconds but when she came to she did appe ar slightly confused. The patient does state that she felt a little dizzy prior to walking out to the car. She denied having any chest pain or shortness of breath. Patient and family both report that patient had worsening lower extremity edema that is now improved today after IV Lasix. The patient's family states that she had a previous episode of syncope around [facility] of this year. However she refused to come to the hospital for evaluation at that time. It is noted that the patient's blood pressure has been on the lower side with a systolic in the mid 90s. DIAGNOSTICS: - EKG reveals sinus mechanism with right bundle branch block. - Chest xray cardiomegaly and mild pulmonary vascular congestion - Laboratory data: WBC 4.0. Hemoglobin 10.7. Platelet count 206. Sodium 132. Potassium 4.5. BUN 49. Creatinine 1.47. Troponin 0.097. 0.103. 0.094. proBNP 10,100. - Current home cardiac medications include aspirin 81 mg daily, Lasix 40 mg daily, lisinopril 20 mg daily, metoprolol tartrate 50 mg twice a day, Aldactone 25 mg daily, and simvastatin 40 mg at night - Most recent echocardiogram obtained in January 2023 performed at [facility] revealing severe LVH, severe pulmonary hypertension, RVSP greater than 60 - Cardiac catheterization history: January 2023 revealing mild nonobstructive CAD. Performed at [facility] 04/25/2024 Patient examined this morning at the bedside. Patient currently denies chest pain or pressure. She denies shortness of breath. Denies dizziness or lightheadedness. Denies palpitations. Patient's blood pressure was low overnight and she was given a one-time dose of midodrine. Blood pressure this morning has improved with a systolic around 107. Creatinine today 1.61. Echocardiogram completed revealing ejection fraction 40 to 45%, moderate global hypokinesis, moderate pulmonary hypertension, moderate to severe TR, mild MR 04/26/2024 Patient examined this morning at the bedside. Patient is sitting up in the chair. She denies chest pain or pressure. She denies shortness of breath. Blood pressure is improved today with a reading of 115/70. Patient's family states they are awaiting PT OT consult to determine if patient will require ECF at discharge. Creatinine improved today at 1.49. 04/27 Patient seen and examined. Patient denies any chest pain or pressure. She has been using her walker and getting up to walk around without much difficulty. Blood pressures still somewhat borderline in the 100/60 systolic range. 04/28 Patient seen and examined. She denies any chest pain or pressure. States she has been able walk to the bathroom. No significant lightheadedness. Blood pressure is borderline and the systolic 90-100 range. Her Aldactone was decreased to 12.5 mg daily. PHYSICAL EXAM: VITAL SIGNS: Reviewed. GENERAL: Well-developed in no acute distress. HEENT: Head is normocephalic. Pupils are equal, round. Sclerae anicteric. Mucous membranes of the mouth are moist. Neck supple. No JVD or thyromegaly LUNGS: Respirations even and unlabored. Lungs essentially clear to auscultation bilaterally, diminished. HEART: Regular rate and rhythm. S1 and S2 heard. ABDOMEN: Soft. Nondistended. Nontender. EXTREMITIES: Normal range of motion. No clubbing or cyanosis. Peripheral pu lses intact. Trace bilateral lower extremity edema NEUROLOGIC: Awake and alert. Oriented x 3. 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 Aldactone have been decreased. Remainder of lisinopril has been held. Stable for discharge home with o utpatient follow-up. Objective - Vital Signs Vital signs: Vital Signs Temp 98.5 F 04/28/24 13:00 Pulse 71 04/28/24 13:00 Resp 16 04/28/24 13:00 BP 111/63 04/28/24 13:00 Pulse Ox 97 04/28/24 13:00 FiO2 Intake & Output 04/27/24 04/28/24 04/28/24 18:59 06:59 18:59 Weight 52 kg Other: Voiding Method Toilet Toilet Toilet # Voids 2 1 - Labs CBC & Chem 7: 04/28/24 03:00 04/28/24 03:00 Labs: Abnormal Lab Results - Last 24 Hours (Table) 04/28/24 04/28/24 Range/Units 03:00 03:00 RBC 4.01 L (4.10-5.20) X 10*6/uL Hgb 11.7 L (12.0-15.0) g/dL Hct 36.4 L (37.2-46.3) % MPV 9.4 L (9.5-12.2) FL Eosinophils # 0.56 H (0.04-0.35) X 10*3/uL Anion Gap 12.40 H (4.00-12.00) mmol/L BUN 53.7 H (9.0-27.0) mg/dL Est GFR (CKD-EPI) 37 L (>=60) BUN/Creatinine Ratio 38.36 H (12.00-20.00) Ratio
== END 2024-04-28 15:03 | disposition home health service (06) | DRG 291 ==
LOC: EC 11:45 → 3SCARD 14:13 → 4SSUR 04-27
PROVIDERS: ADMIT Internal Medicine; ATTEND Internal Medicine
DX: I13.0 Hypertensive heart and chronic kidney disease with heart failure and stage 1 through stage 4 chronic kidney disease, or unspecified chronic kidney disease (principal); I50.33 Acute on chronic diastolic (congestive) heart failure; N17.9 Acute kidney failure, unspecified; I25.10 Atherosclerotic heart disease of native coronary artery without angina pectoris; I27.20 Pulmonary hypertension, unspecified; I42.9 Cardiomyopathy, unspecified; N18.30 Chronic kidney disease, stage 3 unspecified; E78.5 Hyperlipidemia, unspecified; I95.9 Hypotension, unspecified; I07.1 Rheumatic tricuspid insufficiency; R55 Syncope and collapse; I45.10 Unspecified right bundle-branch block; M19.90 Unspecified osteoarthritis, unspecified site; D63.1 Anemia in chronic kidney disease; Z87.891 Personal history of nicotine dependence; Z79.82 Long term (current) use of aspirin; Z90.710 Acquired absence of both cervix and uterus
CPT/HCPCS: 36415; 70450; 71046; 80048; 80053; 83735; 83880; 84484; 85025; 85610; 85730; 93005; 93306; 96374; 99285

== ENCOUNTER 2024-12-03 09:36 | Emergency (ER) | payer MEDICARE ==
[2024-12-03 09:48] VITALS: RESP 18; TEMP 98.1
--- NOTE | 2024-12-03 10:36 | ED ---
Abdominal Pain HPI - General Chief Complaint: Abdominal Pain Stated Complaint: Diarrhea, abd pain Time Seen by Provider: 12/03/24 10:31 Source: patient, RN notes reviewed Mode of arrival: ambulatory Limitations: no limitations - History of Present Illness Initial Comments: 84-year-old female with a history of congestive heart failure with reduced ejection fraction, hyperlipidemia, and hypertension presenting with caregiver for nausea/vomiting/diarrhea x 12 hours. Reports symptoms began suddenly last night and patient reports she is vomiting and having bowel movements at the same time. Reports she has vomited approximately 3-4 times. Also reports an intermittent epigastric pain. Denies chest pain, shortness of breath. States she has chronic leg swelling however denies any new symptoms. She is currently taking Lasix. Denies blood thinners. States she was recently admitted to the hospital for similar symptoms and was found to be in a CHF exacerbation. She also had acute cholecystitis and 2 gallstones were removed via ERCP by Dr. Vickie purcell - Related Data Home Medications Medication Instructions Recorded Confirmed Cholecalciferol (Vitamin D3) 50 mcg PO DAILY 04/23/24 10/20/24 [Vitamin D3 (50 Mcg = 2000 Iu)] Cyanocobalamin (Vitamin B-12) 1,000 mcg PO DAILY 04/23/24 10/20/24 [Vitamin B-12] Docusate [Colace] 100 mg PO Q2D 10/20/24 10/20/24 Metoprolol Tartrate [Lopressor] 25 mg PO BID 10/20/24 10/20/24 allopurinoL [Zyloprim] 50 mg PO DAILY 10/20/24 10/20/24 Previous Rx's Medication Instructions Recorded Aspirin EC [Ecotrin Low Dose] 81 mg PO DAILY #30 tablet. 03/10/15 Atorvastatin [Lipitor] 20 mg PO HS #30 tab 04/28/24 Spironolactone [Aldactone] 12.5 mg PO DAILY #30 tab 04/28/24 Acetaminophen Tab [Tylenol] 650 mg PO Q6HR PRN tab 10/23/24 Furosemide [Lasix] 40 mg PO BID@0900,1600 #60 tab 10/23/24 Allergies Allergy/AdvReac Type Severity Reaction Status Date / Time No Known Allergies Allergy Verified 12/03/24 09:48 Review of Systems ROS Statement: Those systems with pertinent positive or pertinent negative responses have been documented in the HPI. ROS Other: All systems not noted in ROS Statement are negative. Past Medical History Past Medical History: Heart Failure, Hyperlipidemia, Hypertension, Osteoarthritis (OA) Additional Past Medical History / Comment(s): bowel obstruction-no surgery History of Any Multi-Drug Resistant Organisms: None Reported Past Surgical History: Hysterectomy, Tonsillectomy Additional Past Surgical History / Comment(s): benign tumor removal Past Anesthesia/Blood Transfusion Reactions: No Reported Reaction Past Psychological History: No Psychological Hx Reported Smoking Status: Former smoker Past Alcohol Use History: None Reported Past Drug Use History: None Reported - Past Family History Father Family Medical History: Pneumonia General Exam Limitations: no limitations General appearance: alert, in no apparent distress Head exam: Present: atraumatic, normocephalic, normal inspection Eye exam: Present: normal appearance, PERRL, EOMI. Absent: scleral icterus, conjunctival injection, periorbital swelling Respiratory exam: Present: normal lung sounds bilaterally. Absent: respiratory distress, wheezes, rales, rhonchi, stridor Cardiovascular Exam: Present: regular rate, normal rhythm, normal heart sounds. Absent: systolic murmur, diastolic murmur, rubs, gallop, clicks GI/Abdominal exam: Present: soft, normal bowel sounds. Absent: distended, tenderness (Negative Ramírez sign), guarding, rebound, rigid Extremities exam: Present: normal inspection, full ROM, normal capillary refill. Absent: tenderness, pedal edema, joint swelling, calf tenderness Back exam: Absent: CVA tenderness (R), CVA tenderness (L) Neurological exam: Present: alert, oriented X3 Psychiatric exam: Present: normal affect, normal mood Skin exam: Present: warm, dry, intact, normal color. Absent: rash Course Vital Signs 12/03/24 12/03/24 12/03/24 09:43 10:09 11:17 Temperature 98.1 F Pulse Rate 86 87 88 Respiratory 18 18 18 Rate Blood Pressure 130/82 138/92 135/92 O2 Sat by Pulse 99 97 Oximetry 12/03/24 13:58 Temperature Pulse Rate 88 Respiratory 18 Rate Blood Pressure 125/77 O2 Sat by Pulse 94 L Oximetry Medical Decision Making - Medical Decision Making Was pt. sent in by a medical professional or institution (, PA, [facility], urgent care, hospital, or longterm...) When possible be specific @ -No Did you speak to anyone other than the patient for history (EMS, parent, family, police, friend...)? What history was obtained from this source @ -Patient's caregiver supplemented history Did you review nursing and triage notes (agree or disagree)? Why? @ -I reviewed and agree with nursing and triage notes Were old charts reviewed (outside hosp., previous admission, EMS record, old EKG, old radiological studies, urgent care reports/EKG's, longterm records)? Report findings @ -Reviewed previous admission notes and surgical procedure notes. Found that patient was recently admitted to the hospital for CHF exacerbation with elevated troponins and was also found to have acute cholecystitis and underwent ERCP by Dr. Renteria Differential Diagnosis (chest pain, altered mental status, abdominal pain women, abdominal pain men, vaginal bleeding, weakness, fever, dyspnea, syncope, headache, dizziness, GI bleed, back pain, seizure, CVA, palpatations, mental health, musculoskeletal)? @ -Differential Abdominal Pain Women: Appendicitis, Cholecystitis, diverticulosis, ischemic bowel, pancreatitis, hepatitis, UTI, gastroenteritis, AAA, incarcerated hernia, bowel obstruction, constipation, inflammatory bowel, hepatitis, peptic ulcer disease, splenic infarction, perforated viscus, vulvitis, ovarian torsion, PID, kidney stone, placenta abruption, this is not meant to be an all-inclusive list EKG interpreted by me (3pts min.). @ -As above X-rays interpreted by me (1pt min.). @ -Chest x-ray reveals chronic changes without acute pulmonary process, no change from prior CT interpreted by me (1pt min.). @ -None done U/S interpreted by me (1pt. min.). @ -Ultrasound gallbladder reveals hydropic gallbladder with cholelithiasis no evidence for acute cholecystitis What testing was considered but not performed or refused? (CT, X-rays, U/S, labs)? Why? @ -None What meds were considered but not given or refused? Why? @ -None Did you discuss the management of the patient with other professionals ( professionals i.e. , PA, [facility], lab, RT, psych nurse, social work instructor, director investor relations, teacher, foreign policy officer, case finisher)? Give summary @ -No Was smoking cessation discussed for >3mins.? @ -No Was critical care preformed (if so, how long)? @ -No Were there social determinants of health that impacted care today? How? (Homelessness, low income, unemployed, alcoholism, drug addiction, transportation, low edu. Level, literacy, decrease access to med. care, senior living, rehab)? @ -No Was there de-escalation of care discussed even if they declined (Discuss DNR or withdrawal of care, Hospice)? DNR status @ -No What co-morbidities impacted this encounter? (DM, HTN, Smoking, COPD, CAD, Cancer, CVA, ARF, Chemo, Hep., AIDS, mental health diagnosis, sleep apnea, morbid obesity)? @ -None Was patient admitted / discharged? Hospital course, mention meds given and route, prescriptions, significant lab abnormalities, going to OR and other pertinent info. @ - discharge. 84-year-old female presenting for nausea/vomiting/diarrhea x 12 hours. Vital signs are within acceptable limits. Abdomen soft nonsurgical. Patient is having no chest pain or shortness of breath. Provided with appropriate analgesics and antiemetics. Lab work remarkable for lactic acidosis of 2.7, normal white blood cell count of 6, creatinine 1.33, BUN 56, troponin 0.121 decreased from prior, normal LFTs, BNP 10,700 decreased from prior. Urinalysis unremarkable. Chest x-ray reveals chronic changes without acute pulmonary process no change from prior. Ultrasound gallbladder reveals hydropic gallbladder with cholelithiasis without evidence for acute cholecystitis. Upon reevaluation, patient reports significant improvement of symptoms. Denies abdominal pain. Patient is tolerating orals well. Discussed results with patient and family. Offered admission given findings on ultrasound however patient would like to be discharged as her symptoms have resolved. Strict return precautions discussed with patient and family as well as close outpatient follow-up. Case was discussed with my ED attending Dr. Hector. Undiagnosed new problem with uncertain prognosis? @ -No Drug Therapy requiring intensive monitoring for toxicity (Heparin, Nitro, Insulin, Cardizem)? @ -No Were any procedures done? @ -No Diagnosis/symptom? @ -Cholelithiasis, vomiting and diarrhea Acute, or Chronic, or Acute on Chronic? @ -Acute Uncomplicated (without systemic symptoms) or Complicated (systemic symptoms)? @ -Complicated Side effects of treatment? @ -No Exacerbation, Progression, or Severe Exacerbation? @ -No Poses a threat to life or bodily function? How? (Chest pain, [place], [place], pneumonia, PE, COPD, DKA, ARF, appy, cholecystitis, CVA, Diverticulitis, Homicidal, Suicidal, threat to staff... and all critical care pts) @ -Unlikely at this time - Lab Data Result diagrams: 12/03/24 10:38 12/03/24 10:38 Lab Results 12/03/24 12/03/24 12/03/24 Range/Units 10:38 10:38 10:38 WBC 6.44 (4.50-10.00) 10*3/uL RBC 4.51 (4.10-5.20) 10*6/uL Hgb 13.4 (12.0-15.0) g/dL Hct 40.4 (37.2-46.3) % MCV 89.6 (80.0-97.0) fL MCH 29.7 (27.0-32.0) pg MCHC 33.2 (32.0-37.0) g/dL Plt Count 246 (140-440) 10*3/uL MPV 9.2 L (9.5-12.2) fL Immature Gran % (Auto) 0.3 % Neutrophils % 85.0 % Lymphocytes % 11.5 % Monocytes % 3.0 % Eosinophils % 0.0 % Basophils % 0.2 % Immature Gran # 0.02 (0.00-0.04) 10*3/uL Neutrophils # 5.48 (1.80-7.70) 10*3/uL Lymphocytes # 0.74 L (0.90-5.00) 10*3/uL Monocytes # 0.19 L (0.20-1.00) 10*3/uL Eosinophils # 0.00 L (0.04-0.35) 10*3/uL Basophils # 0.01 (0.00-0.10) 10*3/uL PT (10.0-12.5) sec INR (<1.2) APTT (22.0-30.0) sec Sodium 143 (137-145) mmol/L Potassium 4.5 (3.5-5.1) mmol/L Chloride 104 (98-107) mmol/L Carbon Dioxide 27 (22-30) mmol/L Anion Gap 12 mmol/L BUN 56 H (7-17) mg/dL Creatinine 1.33 H (0.52-1.04) mg/dL Est GFR (CKD-EPI)AfAm 42 (>60 ml/min/1.73 sqM) Est GFR (CKD-EPI)NonAf 36 (>60 ml/min/1.73 sqM) Glucose 139 H (74-99) mg/dL Lactic Ac Sepsis Rflx Plasma Lactic Acid Oliver 2.7 H* (0.7-2.0) mmol/L Calcium 10.1 (8.4-10.2) mg/dL Magnesium 2.3 (1.6-2.3) mg/dL Total Bilirubin 1.0 (0.2-1.3) mg/dL AST 34 (14-36) U/L ALT 20 (4-34) U/L Alkaline Phosphatase 106 (38-126) U/L Troponin I (0.000-0.034) ng/mL NT-Pro-B Natriuret Pep 99278 pg/mL Total Protein 8.5 H (6.3-8.2) g/dL Albumin 4.6 (3.5-5.0) g/dL Amylase 93 (30-110) U/L Lipase 129 (23-300) U/L Urine Color Urine Appearance (Clear) Urine pH (5.0-8.0) Ur Specific [place] (1.001-1.035) Urine Protein (Negative) Urine Glucose (UA) (Negative) Urine Ketones (Negative) Urine Blood (Negative) Urine Nitrite (Negative) Urine Bilirubin (Negative) Urine Urobilinogen (<2.0) mg/dL Ur Leukocyte Esterase (Negative) 12/03/24 12/03/24 12/03/24 Range/Units 10:38 10:38 11:03 WBC (4.50-10.00) 10*3/uL RBC (4.10-5.20) 10*6/uL Hgb (12.0-15.0) g/dL Hct (37.2-46.3) % MCV (80.0-97.0) fL MCH (27.0-32.0) pg MCHC (32.0-37.0) g/dL Plt Count (140-440) 10*3/uL MPV (9.5-12.2) fL Immature Gran % (Auto) % Neutrophils % % Lymphocytes % % Monocytes % % Eosinophils % % Basophils % % Immature Gran # (0.00-0.04) 10*3/uL Neutrophils # (1.80-7.70) 10*3/uL Lymphocytes # (0.90-5.00) 10*3/uL Monocytes # (0.20-1.00) 10*3/uL Eosinophils # (0.04-0.35) 10*3/uL Basophils # (0.00-0.10) 10*3/uL PT 10.8 (10.0-12.5) sec INR 1.0 (<1.2) APTT 21.0 L (22.0-30.0) sec Sodium (137-145) mmol/L Potassium (3.5-5.1) mmol/L Chloride (98-107) mmol/L Carbon Dioxide (22-30) mmol/L Anion Gap mmol/L BUN (7-17) mg/dL Creatinine (0.52-1.04) mg/dL Est GFR (CKD-EPI)AfAm (>60 ml/min/1.73 sqM) Est GFR (CKD-EPI)NonAf (>60 ml/min/1.73 sqM) Glucose (74-99) mg/dL Lactic Ac Sepsis Rflx Y Plasma Lactic Acid Oliver (0.7-2.0) mmol/L Calcium (8.4-10.2) mg/dL Magnesium (1.6-2.3) mg/dL Total Bilirubin (0.2-1.3) mg/dL AST (14-36) U/L ALT (4-34) U/L Alkaline Phosphatase (38-126) U/L Troponin I 0.121 H* (0.000-0.034) ng/mL NT-Pro-B Natriuret Pep pg/mL Total Protein (6.3-8.2) g/dL Albumin (3.5-5.0) g/dL Amylase (30-110) U/L Lipase (23-300) U/L Urine Color Urine Appearance (Clear) Urine pH (5.0-8.0) Ur Specific [place] (1.001-1.035) Urine Protein (Negative) Urine Glucose (UA) (Negative) Urine Ketones (Negative) Urine Blood (Negative) Urine Nitrite (Negative) Urine Bilirubin (Negative) Urine Urobilinogen (<2.0) mg/dL Ur Leukocyte Esterase (Negative) 12/03/24 Range/Units 11:15 WBC (4.50-10.00) 10*3/uL RBC (4.10-5.20) 10*6/uL Hgb (12.0-15.0) g/dL Hct (37.2-46.3) % MCV (80.0-97.0) fL MCH (27.0-32.0) pg MCHC (32.0-37.0) g/dL Plt Count (140-440) 10*3/uL MPV (9.5-12.2) fL Immature Gran % (Auto) % Neutrophils % % Lymphocytes % % Monocytes % % Eosinophils % % Basophils % % Immature Gran # (0.00-0.04) 10*3/uL Neutrophils # (1.80-7.70) 10*3/uL Lymphocytes # (0.90-5.00) 10*3/uL Monocytes # (0.20-1.00) 10*3/uL Eosinophils # (0.04-0.35) 10*3/uL Basophils # (0.00-0.10) 10*3/uL PT (10.0-12.5) sec INR (<1.2) APTT (22.0-30.0) sec Sodium (137-145) mmol/L Potassium (3.5-5.1) mmol/L Chloride (98-107) mmol/L Carbon Dioxide (22-30) mmol/L Anion Gap mmol/L BUN (7-17) mg/dL Creatinine (0.52-1.04) mg/dL Est GFR (CKD-EPI)AfAm (>60 ml/min/1.73 sqM) Est GFR (CKD-EPI)NonAf (>60 ml/min/1.73 sqM) Glucose (74-99) mg/dL Lactic Ac Sepsis Rflx Plasma Lactic Acid Oliver (0.7-2.0) mmol/L Calcium (8.4-10.2) mg/dL Magnesium (1.6-2.3) mg/dL Total Bilirubin (0.2-1.3) mg/dL AST (14-36) U/L ALT (4-34) U/L Alkaline Phosphatase (38-126) U/L Troponin I (0.000-0.034) ng/mL NT-Pro-B Natriuret Pep pg/mL Total Protein (6.3-8.2) g/dL Albumin (3.5-5.0) g/dL Amylase (30-110) U/L Lipase (23-300) U/L Urine Color Light Yellow Urine Appearance Clear (Clear) Urine pH 5.5 (5.0-8.0) Ur Specific [place] 1.016 (1.001-1.035) Urine Protein Negative (Negative) Urine Glucose (UA) Negative (Negative) Urine Ketones Negative (Negative) Urine Blood Negative (Negative) Urine Nitrite Negative (Negative) Urine Bilirubin Negative (Negative) Urine Urobilinogen <2.0 (<2.0) mg/dL Ur Leukocyte Esterase Negative (Negative) - EKG Data -: EKG Interpreted by Me EKG Comments: EKG reveals sinus rhythm with right bundle branch block, no changes from previous EKG in September. Ventricular rate 84 bpm, IL interval not calculated, QRS duration 156, QT/QTc 446/488 Disposition Clinical Impression: Cholelithiasis, Vomiting and diarrhea Disposition: HOME SELF-CARE Condition: Stable Instructions (If sedation given, give patient instructions): Gallstones (ED) Additional Instructions: Please watch closely for change in symptoms. If you become unable to tolerate orals, experience continued nausea/vomiting/diarrhea, fever, or develop any new or worsening symptoms please return to the emergency department immediately. Call Dr. Renteria's office to schedule a follow-up. Please return to the Emergency Department if symptoms worsen or any other concerns. Is patient prescribed a controlled substance at d/c from ED?: No Referrals: Anya Newsome MD [Primary Care Provider] - 1-2 days Time of Disposition: 14:12
[2024-12-03 10:56] LABS: ALT 20 U/L (4-34); AST 34 U/L (14-36); African American GFR (CKD) 42 (>60 ml/min/1.73 sqM); Albumin 4.6 g/dL (3.5-5.0); Alkaline Phosphatase 106 U/L (38-126); Amylase 93 U/L (30-110); Anion Gap 12 mmol/L; Blood Urea Nitrogen 56 mg/dL (7-17); Calcium 10.1 mg/dL (8.4-10.2); Carbon Dioxide 27 mmol/L (22-30); Chloride 104 mmol/L (98-107); Glucose 139 mg/dL (74-99); Lipase 129 U/L (23-300); Magnesium 2.3 mg/dL (1.6-2.3); Non-African American GFR(CKD) 36 (>60 ml/min/1.73 sqM); Potassium 4.5 mmol/L (3.5-5.1); Sodium 143 mmol/L (137-145); Total Protein 8.5 g/dL (6.3-8.2)
[2024-12-03 11:05] LABS: NT-Pro-B-Type Natriuretic Pept 10700 pg/mL
[2024-12-03] MEDS: ACETAMINOPHEN IV (For NPO) 1,000 MG in EMPTY BAG 1 BAG IVPB STA (11:15)
[2024-12-03 11:17] LABS: Basophils # (A) 0.01 10*3/uL (0.00-0.10); Basophils % (A) 0.2 %; Eosinophils # (A) 0.00 10*3/uL (0.04-0.35); Eosinophils % (A) 0.0 %; HCT 40.4 % (37.2-46.3); HGB 13.4 g/dL (12.0-15.0); Lymphocytes # (A) 0.74 10*3/uL (0.90-5.00); Lymphocytes % (A) 11.5 %; MCH 29.7 pg (27.0-32.0); MCHC 33.2 g/dL (32.0-37.0); MCV 89.6 fL (80.0-97.0); Monocytes # (A) 0.19 10*3/uL (0.20-1.00); Monocytes % (A) 3.0 %; Neutrophils # (A) 5.48 10*3/uL (1.80-7.70); Neutrophils % (A) 85.0 %; Platelet Count 246 10*3/uL (140-440); RBC 4.51 10*6/uL (4.10-5.20); RDW 16.4 % (11.5-14.5); WBC 6.44 10*3/uL (4.50-10.00)
[2024-12-03] MEDS: ONDANSETRON 4 MG/2 ML VIAL IVP STA (11:17)
[2024-12-03 11:19] VITALS: PULSE 88
[2024-12-03 11:22] LABS: Bilirubin,Urine Negative (Negative); Blood,Urine Negative (Negative); Color,Urine Light Yellow; Glucose,Urine (UA) Negative (Negative); Ketones,Urine Negative (Negative); Leukocyte Esterase,Urine Negative (Negative); Nitrite,Urine Negative (Negative); PH, Urine 5.5 (5.0-8.0); Protein,Urine Negative (Negative); Specific Gravity,Urine 1.016 (1.001-1.035); Urobilinogen,Urine <2.0 mg/dL (<2.0)
[2024-12-03 11:33] LABS: INR 1.0 (<1.2); Partial Thromboplastin Time 21.0 sec (22.0-30.0); Prothrombin Time 10.8 sec (10.0-12.5)
--- NOTE | 2024-12-03 12:53 | XR ---
EXAMINATION TYPE: XR chest 2V DATE OF EXAM: 12/03/2024 12:46 PM COMPARISON: Chest radiographs from 10/19/2024 TECHNIQUE: XR chest 2V Frontal and lateral views of the chest. CLINICAL INDICATION:Female, 84 years old with history of epigastric pain, N/V; FINDINGS: Lungs/Pleura: There is no evidence of pleural effusion, focal consolidation, or pneumothorax. Chroni c senescent parenchymal change. Pulmonary vascularity: Unremarkable. Heart/mediastinum: Cardiomediastinal silhouette is enlarged and stable. Musculoskeletal: Multiple level degenerative disc disease changes seen throughout the spine. Bilatera l shoulder arthropathy. IMPRESSION: Chronic changes without acute pulmonary process. No significant change from prior. [facility], , 12/03/2024 12:51 PM
--- NOTE | 2024-12-03 12:55 | US ---
EXAMINATION TYPE: US gallbladder DATE OF EXAM: 12/03/2024 COMPARISON: US 2024 CLINICAL INDICATION: Female, 84 years old with history of epigastric pain; TECHNIQUE: Grayscale and color Doppler imaging of the right upper quadrant was performed. FINDINGS: EXAM MEASUREMENTS: Liver Length: 15.0 cm Gallbladder Wall: 0.2 cm CBD: 0.3 cm Right Kidney: 8.5 x 3.2 x 3.4 cm Pancreas: visualized portions wnl Liver: wnl Gallbladder: cholelithiasis, hydropic Evidence for sonographic Ramírez's sign: no CBD: visualized portions wnl Right Kidney: wnl Visualized portions of incus unremarkable. The liver is unremarkable. Hydropic gallbladder without wa ll thickening or surrounding fluid. Multiple shadowing gallstones identified within the gallbladder. Negative sonographic Ramírez's sign. Visualized portions of the common bile duct are within normal rocha its. Right kidney demonstrates no hydronephrosis, shadowing calculus or solid mass. IMPRESSION: Hydropic gallbladder with cholelithiasis. No other ultrasound evidence for acute cholecystitis. [facility], , 12/03/2024 12:53 PM
[2024-12-03] MEDS: SODIUM CHLORIDE 0.9% 500 ML 500 ML IV STA (13:58)
[2024-12-03 14:02] VITALS: BP 125/77
== END 2024-12-03 14:45 | disposition home or self-care (01) ==
LOC: EC 09:36
DX: K80.00 Calculus of gallbladder with acute cholecystitis without obstruction (principal); R19.7 Diarrhea, unspecified; I45.10 Unspecified right bundle-branch block; Z87.891 Personal history of nicotine dependence
CPT/HCPCS: 36415; 93005; 83880; 80053; 82150; 83605; 83690; 83735; 84484; 85025; 85610; 85730; 81003; 71046; 76705; 99284; 96365; 96375; J2405; J0131